=== PATIENT | male | born 1950 | race Caucasian/White ===

== ENCOUNTER → 2016-06-17 | Outpatient (CLI) | payer OTHER ==
[~2016-06-17] VITALS: Ht 177.8 cm; Wt 127.0 kg
[~2016-06-17] MED LIST: ATOR40TA PO; BUPR75TA5 PO; EFFE150C PO; ELIQ5TAB PO; GLIP5TAB8 PO; IRON65TA PO; JANU100T PO; LIDOCAINE 2% INJ 100 MG/5 ML SDV (FOR ANES.) As Ordered ONE; METF1000 PO; METO-207 PO; NS 1,000 ML IV SCH; PROPOFOL 200 MG/20 ML VIAL As Ordered ONE; VITA10002 PO; VITA2000 PO; VITMTA PO
--- NOTE | 2016-06-17 09:09 | ROOR ---
Patient Name: True Walls Procedure Date: 06/17/2016 8:47 AM Date of : 1950 Age: 66 Room: [facility] Gender: Male Note Status: Finalized Procedure: Colonoscopy to Cecum Indications: Colon cancer screening in patient at increased risk: Colorectal cancer in brother, Last colonoscopy: 2006 Providers: Fletcher Michael MD Referring MD: Chitra Avila DO Requesting Provider: Medicines: Monitored Anesthesia Care Complications: No immediate complications. Procedure: Pre-Anesthesia Assessment: - The heart rate, respiratory rate, oxygen saturations, blood pressure, adequacy of pulmonary ventilation, and response to care were monitored throughout the procedure. The Colonoscope was introduced through the anus and advanced to the cecum, identified by appendiceal orifice and ileocecal valve. The colonoscopy was performed without difficulty. The patient tolerated the procedure well. The quality of the bowel preparation was fair. Findings: The perianal and digital rectal examinations were normal. Non-bleeding internal hemorrhoids were found during retroflexion. The hemorrhoids were small and Grade I (internal hemorrhoids that do not prolapse). Scattered small-mouthed diverticula were found in the recto-sigmoid colon, sigmoid colon and descending colon. The exam was otherwise without abnormality on direct and retroflexion views. Impression: - Preparation of the colon was fair. - Non-bleeding internal hemorrhoids. - Diverticulosis in the recto-sigmoid colon, in the sigmoid colon and in the descending colon. - The examination was otherwise normal on direct and retroflexion views. - No specimens collected. - The exam was otherwise normal to the cecum. Recommendation: - Patient has a contact number available for emergencies. The signs and symptoms of potential delayed complications were discussed with the patient. Return to normal activities tomorrow. Written discharge instructions were provided to the patient. - High fiber diet. - Continue present medications. - Repeat colonoscopy in 5 years for screening purposes. - Return to referring physician. - Resume Eliquis (apixaban) at prior dose today. - The findings and recommendations were discussed with the patient's family. Fletcher Michael MD Fletcher Michael MD 06/17/2016 9:09:16 AM This report has been signed electronically. Number of Addenda: 0 Note Initiated On: 06/17/2016 8:47 AM Estimated Blood Loss: Estimated blood loss: none.
[2016-06-17 09:35] VITALS: BP 118/66
== END ==
LOC: M OPP 08:12
PROVIDERS: ATTEND Internal Medicine Gastroenterology
DX: Z12.11 Encounter for screening for malignant neoplasm of colon (principal); Z80.0 Family history of malignant neoplasm of digestive organs; K64.0 First degree hemorrhoids; K57.30 Diverticulosis of large intestine without perforation or abscess without bleeding; D64.9 Anemia, unspecified; I48.91 Unspecified atrial fibrillation; E11.9 Type 2 diabetes mellitus without complications; Z87.891 Personal history of nicotine dependence; Z79.899 Other long term (current) drug therapy
CPT/HCPCS: 99156; 99157; G0105

== ENCOUNTER → 2016-12-07 | Outpatient (REF) | payer OTHER ==
[~2016-12-07] MED LIST changes: -ATOR40TA PO; +ATOR40TA75 PO; -LIDOCAINE 2% INJ 100 MG/5 ML SDV (FOR ANES.) As Ordered ONE; -METF1000 PO; +METF10004 PO; -METO-207 PO; +METO1TAB7 PO; -NS 1,000 ML IV SCH; -PROPOFOL 200 MG/20 ML VIAL As Ordered ONE
== END ==
LOC: M LAB REF 17:22
PROVIDERS: ATTEND Nurse Practitioner Family
DX: R53.83 Other fatigue (principal)

== ENCOUNTER → 2017-01-11 | Outpatient (CLI) | payer OTHER ==
[2017-01-11 12:08] LABS: MEAN CORPUSCULAR HEMOGLOBIN 28.7 pg (27.0-33.0); MEAN CORPUSCULAR VOLUME 84.5 fl (80.0-96.0); WHITE BLOOD COUNT 9.3 K/mm3 (4.0-10.0)
== END ==
LOC: M LAB 11:28
PROVIDERS: ATTEND Thoracic Surgery (Cardiothoracic Vascular Surgery)
DX: D72.829 Elevated white blood cell count, unspecified (principal)

== ENCOUNTER → 2017-11-09 | Outpatient (REF) | payer OTHER ==
[2017-11-10 10:41] LABS: VITAMIN B12 LEVEL 707 PG/ML (247-911)
== END ==
LOC: M LAB REF 17:44
DX: D51.9 Vitamin B12 deficiency anemia, unspecified (principal)
CPT/HCPCS: 82607

== ENCOUNTER → 2017-11-29 | Outpatient (REF) | payer OTHER | LOC: M LAB REF 16:55 | DX: R22.1 Localized swelling, mass and lump, neck (principal) ==

== ENCOUNTER → 2017-12-28 | Outpatient (CLI) | payer MEDICARE, OTHER | LOC: M ONCR 13:12 | DX: C09.9 Malignant neoplasm of tonsil, unspecified (principal) | CPT/HCPCS: G0463 ==

== ENCOUNTER → 2018-01-04 | Outpatient (CLI) | payer MEDICARE, OTHER | LOC: M PLARAD 11:15 | DX: C77.0 Secondary and unspecified malignant neoplasm of lymph nodes of head, face and neck (principal) | CPT/HCPCS: 78815 ==

== ENCOUNTER 2018-01-14 10:07 | Day surgery (SDC) | payer MEDICARE ==
[2018-01-14] MEDS: LR 1,000 ML IV ×2 (07:00)
[2018-01-14 10:27] LABS: HEMATOCRIT 35.5 % (42.0-52.0); HEMOGLOBIN 11.6 g/dl (13.5-17.5); MEAN CORPUSCULAR HEMOGLOBIN 26.5 pg (27.0-33.0); MEAN CORPUSCULAR HGB CONC 32.7 g/dl (32.0-36.5); MEAN CORPUSCULAR VOLUME 81.1 fl (80.0-96.0); PLATELET COUNT, AUTOMATED 280 10^3/uL (150-450); RED BLOOD COUNT 4.38 10^6/uL (4.30-6.10); RED CELL DISTRIBUTION WIDTH 14.2 % (11.5-14.5); WHITE BLOOD COUNT 9.5 10^3/uL (4.0-10.0)
[2018-01-14 10:49] LABS: ANION GAP 6 MEQ/L (8-16); BLOOD UREA NITROGEN 14 MG/DL (7-18); CALCIUM LEVEL 8.7 MG/DL (8.8-10.2); CARBON DIOXIDE LEVEL 28 MEQ/L (21-32); CHLORIDE LEVEL 106 MEQ/L (98-107); CREATININE FOR GFR 0.91 MG/DL (0.70-1.30); GLOMERULAR FILTRATION RATE > 60.0 (>49); GLUCOSE, FASTING 222 MG/DL (70-100); POTASSIUM SERUM 4.5 MEQ/L (3.5-5.1); SODIUM LEVEL 140 MEQ/L (136-145)
[2018-01-14 11:01] LABS: BEDSIDE GLUCOSE 235 MG/DL (80-115)
[2018-01-14] MEDS: HumaLOG INSULIN (NovoLOG) PER UNIT SC ×2 (11:19)
[2018-01-14] MEDS: dexameTHASONE 4 MG/ML 1ML VIAL (J1100) IV ×2 (13:15)
[2018-01-14] MEDS: OXYMETAZOLINE NASAL SPRAY (AFRIN) As Ordered ×2 (13:48)
[2018-01-14] MEDS: LIDOCAINE W/EPINEPHRINE 1% 20ML VIAL As Ordered ×2 (13:50)
[2018-01-14 14:25] LABS: BEDSIDE GLUCOSE 164 MG/DL (80-115)
[2018-01-14] MEDS ORDERED: fentaNYL 250 MCG/5 ML INJECTION (J3010) As Ordered ×2 (14:27)
[2018-01-14] MEDS ORDERED: ROCURONIUM BROMIDE 50 MG/5 ML VIAL As Ordered ×2 (14:28)
[2018-01-14] MEDS ORDERED: dexameTHASONE 4 MG/ML 1ML VIAL (J1100) As Ordered ×2 (14:28)
[2018-01-14] MEDS ORDERED: LIDOCAINE 2% INJ 100 MG/5 ML SDV (FOR ANES.) As Ordered ×2 (14:28)
[2018-01-14] MEDS ORDERED: PROPOFOL 200 MG/20 ML VIAL As Ordered ×2 (14:28)
[2018-01-14] MEDS ORDERED: MIDAZOLAM INJ 2 MG/2 ML VIAL (J2250) As Ordered ×2 (14:28)
[2018-01-14] MEDS ORDERED: ONDANSETRON 4MG/2ML VIAL (J2405) As Ordered ×2 (14:28)
[2018-01-14] MEDS ORDERED: SUGAMMADEX SODIUM 500 MG/5 ML VIAL (BRIDION) As Ordered ×2 (14:29)
[2018-01-14] MEDS ORDERED: PERCOCET 5MG/325MG TAB PO ×2 (14:45)
[2018-01-14] MEDS ORDERED: LR 1,000 ML IV ×4 (14:45)
[2018-01-14] MEDS ORDERED: fentaNYL 100 MCG/2 ML INJECTION (J3010) IV ×2 (14:45)
[2018-01-14] MEDS ORDERED: ONDANSETRON 4MG/2ML VIAL (J2405) IV ×2 (14:45)
[2018-01-14] MEDS ORDERED: METOCLOPRAMIDE INJ 10MG/2ML VIAL (J2765) IV ×2 (14:45)
[2018-01-14] MEDS ORDERED: MEPERIDINE INJ 25 MG/ML VIAL (J2175) IV ×2 (14:45)
== END 2018-01-14 15:37 | disposition home or self-care (01) ==
LOC: M SDC 10:07
DX: C09.9 Malignant neoplasm of tonsil, unspecified (principal); C10.3 Malignant neoplasm of posterior wall of oropharynx; I48.0 Paroxysmal atrial fibrillation; Z79.01 Long term (current) use of anticoagulants; Z87.891 Personal history of nicotine dependence; I25.10 Atherosclerotic heart disease of native coronary artery without angina pectoris; Z95.1 Presence of aortocoronary bypass graft; Z95.2 Presence of prosthetic heart valve; I35.0 Nonrheumatic aortic (valve) stenosis; I71.2 Thoracic aortic aneurysm, without rupture; E11.9 Type 2 diabetes mellitus without complications; G47.33 Obstructive sleep apnea (adult) (pediatric); Z79.899 Other long term (current) drug therapy
CPT/HCPCS: 31536

== ENCOUNTER → 2018-01-14 | Outpatient (REF) | payer MEDICARE | LOC: M LAB REF 15:00 | DX: C34.90 Malignant neoplasm of unspecified part of unspecified bronchus or lung (principal) | CPT/HCPCS: 88300 ==

== ENCOUNTER → 2018-01-18 | Outpatient (REF) | payer MEDICARE ==
[2018-01-18 13:54] LABS: PLATELET COUNT, AUTOMATED 343 10^3/uL (150-450)
[2018-01-18 14:07] LABS: INR 1.06; PROTHROMBIN TIME 13.9 SECONDS (12.1-14.4)
== END ==
LOC: M LAB REF 13:22
DX: Z01.812 Encounter for preprocedural laboratory examination (principal); Z79.01 Long term (current) use of anticoagulants
CPT/HCPCS: 85049

== ENCOUNTER → 2018-01-24 | Outpatient (CLI) | payer MEDICARE ==
[~2018-01-24] MED LIST changes: -ATOR40TA75 PO; -BUPR75TA5 PO; -EFFE150C PO; -ELIQ5TAB PO; -GLIP5TAB8 PO; -IRON65TA PO; -JANU100T PO; +LIDOCAINE 1% MDV 20ML VIAL As Ordered; -METF10004 PO; -METO1TAB7 PO; -VITA10002 PO; -VITA2000 PO; -VITMTA PO
== END ==
LOC: M RADPRO 12:17
DX: C34.90 Malignant neoplasm of unspecified part of unspecified bronchus or lung (principal); R91.8 Other nonspecific abnormal finding of lung field; Z88.8 Allergy status to other drugs, medicaments and biological substances; Z91.048 Other nonmedicinal substance allergy status
CPT/HCPCS: 32405

== ENCOUNTER → 2018-02-08 | Outpatient (CLI) | payer MEDICARE | LOC: M SMT 09:44 | DX: C78.01 Secondary malignant neoplasm of right lung (principal) | CPT/HCPCS: 71046 ==

== ENCOUNTER 2018-02-09 11:27 | Day surgery (SDC) | payer MEDICARE ==
[2018-02-09] MEDS ORDERED: ceFAZolin 2 GM/D5W 50 ML IV BAG (J0690 PER 500MG) As Ordered (12:00)
[2018-02-09 12:24] LABS: BEDSIDE GLUCOSE 220 MG/DL (80-115)
[2018-02-09] MEDS ORDERED: LR 1,000 ML IV (13:00)
[2018-02-09] MEDS ORDERED: LIDOCAINE 2% INJ 100 MG/5 ML SDV (FOR ANES.) As Ordered (13:19)
[2018-02-09] MEDS ORDERED: PROPOFOL 200 MG/20 ML VIAL As Ordered ×2 (13:19→13:59)
[2018-02-09] MEDS ORDERED: fentaNYL 100 MCG/2 ML INJECTION (J3010) As Ordered (13:20)
[2018-02-09] MEDS ORDERED: MIDAZOLAM INJ 2 MG/2 ML VIAL (J2250) As Ordered (13:20)
[2018-02-09] MEDS: MUPIROCIN 2% OINT 22 GM TUBE TOP (13:45)
[2018-02-09 13:56] LABS: BEDSIDE GLUCOSE 215 MG/DL (80-115)
[2018-02-09] MEDS: LIDOCAINE 1% MDV 20ML VIAL As Ordered (14:00)
[2018-02-09] MEDS: HEPARIN SOD (PORCINE) 5000 UNITS/ML VIAL As Ordered (14:00)
[2018-02-09] MEDS: BUPIVACAINE LIPOSOME/PF 1.3% 20 ML VIAL (13.3MG/ML)(EXPAREL) As Ordered (14:10)
== END 2018-02-09 15:56 | disposition home or self-care (01) ==
LOC: M SDC 15:56
DX: C78.01 Secondary malignant neoplasm of right lung (principal); C09.0 Malignant neoplasm of tonsillar fossa; Z45.2 Encounter for adjustment and management of vascular access device; G47.33 Obstructive sleep apnea (adult) (pediatric); E66.01 Morbid (severe) obesity due to excess calories; I48.91 Unspecified atrial fibrillation; Z79.02 Long term (current) use of antithrombotics/antiplatelets; I10 Essential (primary) hypertension; E78.00 Pure hypercholesterolemia, unspecified; E11.9 Type 2 diabetes mellitus without complications; Z95.1 Presence of aortocoronary bypass graft; Z87.891 Personal history of nicotine dependence; Z79.84 Long term (current) use of oral hypoglycemic drugs; I25.119 Atherosclerotic heart disease of native coronary artery with unspecified angina pectoris
CPT/HCPCS: 36561

== ENCOUNTER → 2018-02-21 | Outpatient (CLI) | payer MEDICARE | LOC: M SMT 08:19 | DX: C78.01 Secondary malignant neoplasm of right lung (principal) | CPT/HCPCS: 71046 ==

== ENCOUNTER → 2018-02-22 | Outpatient (REF) | payer MEDICARE ==
[2018-02-22 19:58] LABS: MAGNESIUM LEVEL 1.6 MG/DL (1.8-2.4)
== END ==
LOC: M LAB REF 11:04
DX: C78.01 Secondary malignant neoplasm of right lung (principal); C77.1 Secondary and unspecified malignant neoplasm of intrathoracic lymph nodes
CPT/HCPCS: 83735

== ENCOUNTER → 2018-04-20 | Outpatient (CLI) | payer MEDICARE ==
[~2018-04-20] MED LIST changes: +ASPI1TAB PO; +ATOR40TA75 PO; +BUPR75TA5 PO; +EFFE150C2 PO; +ELIQ5TAB PO; +FERR325T3 PO; +GLIP5TAB8 PO; +IRON65TA PO; +ISOVUE-370 76% 100ML VIAL (Q9967) As Ordered ONE; +JANU100T PO; +LASI40TA PO; -LIDOCAINE 1% MDV 20ML VIAL As Ordered; +MAGN400T5 PO; +METF10004 PO; +METO1TAB7 PO; +METO50TA7 PO; +ONDA8TAB8 PO; +PERCOCET PO; +PROC10TA4 PO; +VITA10002 PO; +VITA2000 PO; +VITA500079 PO; +VITA500T3 PO; +VITMTA PO; +ZOFR8TAB22 PO
--- NOTE | 2018-04-20 11:42 | REP ---
CT NECK WITH CONTRAST: HISTORY: Squamous cell carcinoma. CONTRAST: Isovue 370, 100 mL. COMPARISON: 11/24/2017. There is very minimal thickening of the right lateral wall of the nata- and hypopharynx. This is decreased compared to the previous study. There is no significant mass effect on the nata- or hypopharynx. The nasopharynx, larynx, and subglottic trachea are normal in appearance. An enlarged lymph node mass is present in the right internal jugular chain and posterior triangle at the level of the nata- and hypopharynx. This measures 3.9 cm in transverse by 4.7 cm in AP by 4.5 cm in cephalocaudal dimensions and is slightly increased in size compared to the previous study. An enlarged lymph node mass is present in the right posterior triangle at the level of the hypopharynx. This measures 2.5 cm in transverse by 3.3 cm in AP by 2.7 cm in cephalocaudal dimensions and is increased in size compared to the previous study. An enlarged lymph node of 1.3 cm in width is present in the right posterior triangle at the level of the lower hypopharynx. An enlarged lymph node 1.6 cm in width is present in the right retropharyngeal space at the level of the oropharynx. This is unchanged in size compared to the previous study. An enlarged lymph node 1.9 cm in width is present in the right internal jugular chain at the level of the nata- and hypopharynx. An enlarged lymph node 1.6 cm in width is present in the left posterior triangle at the level of the hypopharynx. An enlarged lymph node 1.4 cm in width is present in the right submandibular area. Small lymph nodes less than 1 cm in size are present in the posterior triangles, left submandibular and submental areas. Atherosclerotic calcification is present at the carotid bifurcations. Degenerative change is present in the cervical spine. The lung apices are clear. Minimal mucosal thickening is present in the right ethmoid and maxillary sinuses. IMPRESSION: 1. There is minimal thickening of the right lateral wall of the nata- and hypopharynx that is decreased in size compared to the previous study. 2. There is bilateral internal jugular chain, posterior triangle, and right submandibular lymphadenopathy that has progressed compared to the previous study. Electronically Signed by Maged Cortes MD 04/20/2018 11:48 A
--- NOTE | 2018-04-20 19:47 | REP ---
Clinical: History of stage IV squamous cell carcinoma. Technique: Axial contrast enhanced images from the thoracic inlet to the upper abdomen with coronal and sagittal re-formations using 100 ml Isovue 370 intravenous contrast material. Comparison: 11/10/2016. Findings: There is a 1.5 cm multinodular lesion in the posterior basilar right middle lobe (images 58-62) which represents a new finding. There is a 1.4 cm nodular density with spiculated margins in the anterior right upper lobe (images 20-23) along with few smaller scattered bilateral non solid densities. Conglomerate subcarinal adenopathy measures 3.8 cm maximal diameter along with mediastinal and right hilar lymph nodes measuring up to approximately 2 cm diameter. These findings are most consistent with metastatic disease. Chronic interstitial changes with few scattered small bullae primarily involving the upper lung zones noted. No effusion. No pneumothorax. Tracheobronchial tree is patent. Mediastinum demonstrates stable atherosclerotic changes to the thoracic aorta and coronary arteries. Upper abdomen demonstrates prior gastric bypass surgery and small hiatal hernia as well as fatty infiltration to the visualized liver. Bilateral adrenal glands are within normal limits. Impression: New soft tissue nodular densities involving the right lung with smaller scattered subtle non solid densities noted bilaterally and associated adenopathy most consistent with increased metastatic disease. Electronically Signed by Ck Holland MD 04/20/2018 07:40 P
== END ==
LOC: M RAD 09:43
PROVIDERS: ATTEND Nurse Practitioner Family
DX: C09.9 Malignant neoplasm of tonsil, unspecified (principal)
CPT/HCPCS: 70491; 71260; Q9967

== ENCOUNTER → 2018-05-16 | Outpatient (CLI) | payer MEDICARE ==
[~2018-05-16] MED LIST changes: -LASI40TA PO; +LASI40TA9 PO
--- NOTE | 2018-05-16 12:47 | REP ---
CT NECK WITH CONTRAST: HISTORY: Tonsillar carcinoma. CONTRAST: Isovue 370, 75 mL. There is minimal thickening of the right lateral wall of the nata- and hypopharynx. This is unchanged compared to the previous study. There is no significant mass effect on the nata- or hypopharynx. The nasopharynx, larynx and subglottic trachea are normal in appearance. The salivary and thyroid gland normal in size and density. Enlarged lymph node 0.5 cm in width is present in the right retropharyngeal space at the level of the tonsils. This is unchanged in size compared to the previous study. An enlarged lymph node mass is present in the right internal jugular chain and posterior triangle. This measures 4.2 cm in transverse x 5.4 in AP x 6.3 cm in cephalocaudal dimensions and is increased in size compared to the previous study. An enlarged lymph node 1.2 cm in width is present in the right posterior triangle, posterior to the large right internal jugular chain posterior triangle, lymph node mass at the level of the hypopharynx. This is increased in size compared to the previous study. Enlarged lymph nodes 1.1 and 1.4 cm in width are present in the right posterior triangle at the level of the thyroid cartilage. These are increased in size compared to the previous study. An enlarged lymph node 1.3 cm in width is present in the right internal jugular chain at the level of the oropharynx. An enlarged lymph node 1.9 cm in width is present in the left internal jugular chain at the level of the hypopharynx. This is unchanged in size compared to the previous study. An enlarged lymph node 1.8 cm in width is present in an enlarged lymph node 1.8 cm in width is present in the left posterior triangle at the level of the hypopharynx. This is increased in size compared to the previous study. An enlarged lymph node 1.3 cm in width is present in the left posterior triangle at the level of the oropharynx. This is unchanged in size compared to the previous study. An enlarged lymph node 1.5 cm in width is present in the right submandibular area. This is increased in size compared to the previous study. Atherosclerotic calcification is present at the carotid bifurcations. Degenerative change is present in the cervical spine. Mucosal thickening is present in the right maxillary sinus. IMPRESSION: 1. There is minimal thickening of the right lateral wall of the nata- and hypopharynx, unchanged compared to the previous study. There is no significant mass effect on the nata- or hypopharynx. 2. There is bilateral internal jugular chain, posterior triangle, and right submandibular lymphadenopathy that has progressed compared to the previous study. Electronically Signed by Maged Cortes MD 05/16/2018 12:57 P
== END ==
LOC: M RAD 10:58
PROVIDERS: ATTEND Internal Medicine Medical Oncology
DX: C09.9 Malignant neoplasm of tonsil, unspecified (principal); C77.1 Secondary and unspecified malignant neoplasm of intrathoracic lymph nodes; C78.01 Secondary malignant neoplasm of right lung
CPT/HCPCS: 70491; Q9967

== ENCOUNTER → 2018-08-23 | Outpatient (CLI) | payer MEDICARE ==
[~2018-08-23] MED LIST changes: -ASPI1TAB PO; +ASPI81TA26 PO; +MAGN400T2 PO
--- NOTE | 2018-08-23 14:33 | REP ---
CT NECK WITH CONTRAST: HISTORY: Metastatic squamous cell carcinoma. CONTRAST: Isovue 370, 100 mL. COMPARISON: 05/16/2018 There is minimal thickening of the right lateral wall of the nata- and hypopharynx. This is unchanged compared to the previous study. There is no significant mass effect on the nata- or hypopharynx. The nasopharynx, larynx, and subglottic trachea are normal in appearance. The salivary and thyroid glands are normal in size and density. An enlarged lymph node mass is present in the right posterior triangle at the level of the nata- and hypopharynx. This measures 2.5 cm in transverse x 3.4 cm in AP x 5.8 cm in cephalocaudal dimensions and is decreased in size compared to the previous study. An enlarged lymph node 1.1 cm in width is present in the right internal jugular chain at the level of the oropharynx. This is decreased in size compared to the previous study. There has been resolution of the previously noted left internal jugular chain, left posterior triangle, and right submandibular adenopathy. Small lymph nodes less than 1 cm in size are present in the left internal jugular chain, left posterior triangle, and submandibular areas. Atherosclerotic calcification is present at the carotid bifurcations. Degenerative change is present in the cervical spine. Mucosal thickening is present in the right ethmoid and maxillary sinuses. IMPRESSION: 1. There is minimal thickening of the right lateral wall of the nata- and hypopharynx with no significant mass effect on the nata- or hypopharynx. This is unchanged compared to the previous study. 2. There has been a decrease in size of the right internal jugular chain and right posterior triangle lymph node masses. There has been resolution of the previously noted left internal jugular chain, left posterior triangle, and right submandibular lymphadenopathy. Electronically Signed by Maged Cortes MD 08/23/2018 02:35 P
--- NOTE | 2018-08-23 15:21 | REP ---
CT chest with IV contrast: History: Metastatic squamous cell carcinoma of the head and neck. Post chemotherapy. Comparison chest CT study April 20, 2018. CT contrast dose: 100 mL of intravenous Isovue [address] findings: There has been fairly dramatic improvement. The previously noted subcarinal lymph node measures 9 x 16 mm today. Previously by my measurement these dimensions were 19 x 39 mm. A right hilar lymph node is much smaller measuring 14 mm today, previously 21 mm in greatest dimension. There is a 12 mm precarinal lymph node which is similar to the prior study. No new mediastinal adenopathy is seen. All of the previously noted metastatic right lung nodules have dramatically decreased in size leaving only a streak-like trace. No new nodule is appreciated. There are stable subcentimeter nodules in the left upper lobe and right upper lobe. No pleural or pericardial effusion is seen. A small hiatal hernia is noted. The patient is status post gastric bypass. There is fatty infiltration of the liver. No liver mass lesion is apparent. No adrenal lesion is observed. No bony destructive lesion is seen. Impression: Significant regression of the patient's intrathoracic disease since the most recent prior study April 20, 2018. Electronically Signed by Jaron Mandel MD 08/23/2018 08:44 P
== END ==
LOC: M RAD 12:45
PROVIDERS: ATTEND Advanced Practice Midwife
DX: C09.9 Malignant neoplasm of tonsil, unspecified (principal); Z92.21 Personal history of antineoplastic chemotherapy
CPT/HCPCS: 70491; 71260; Q9967

== ENCOUNTER → 2018-12-21 | Outpatient (REF) | payer MEDICARE ==
[~2018-12-21] MED LIST changes: +CYAN100049 PO; +CYAN500T8 PO; -ISOVUE-370 76% 100ML VIAL (Q9967) As Ordered ONE; +OXYC1TAB PO; -VITA10002 PO; -VITA500T3 PO
[2018-12-21 20:22] LABS: PERCENT SATURATION 19.9 % (19.7-50.0)
== END ==
LOC: M LAB REF 16:58
PROVIDERS: ATTEND Internal Medicine
DX: D64.9 Anemia, unspecified (principal)

== ENCOUNTER 2019-01-24 15:36 | Emergency (ER) | payer MEDICARE ==
[2019-01-24] MEDS ORDERED: KEYT1INJ IV (15:55)
[2019-01-24] MEDS ORDERED: METOPROLOL TART 50 MG TAB PO ONE (16:45)
[2019-01-24] MEDS ORDERED: APIXABAN 5 MG TAB (ELIQUIS) PO ONE (16:45)
[2019-01-24] MEDS: METOPROLOL 5 MG/5 ML VIAL IV SCH ×3 (16:52→17:18)
[2019-01-24 17:18] VITALS: BP 138/83
--- NOTE | 2019-01-24 17:53 | ECGEPIP ---
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
[2019-01-24] MEDS ORDERED: ELIQ5TAB PO (18:07)
[2019-01-24] MEDS ORDERED: METO50TA7 PO (18:07)
[2019-01-24 18:26] VITALS: BP 114/57
--- NOTE | 2019-01-24 23:30 | ECGEPIP ---
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
== END 2019-01-24 18:39 | disposition home or self-care (01) ==
LOC: M ED 15:36
DX: I48.0 Paroxysmal atrial fibrillation (principal); C09.9 Malignant neoplasm of tonsil, unspecified; I25.10 Atherosclerotic heart disease of native coronary artery without angina pectoris; Z95.1 Presence of aortocoronary bypass graft; Z91.048 Other nonmedicinal substance allergy status; Z88.8 Allergy status to other drugs, medicaments and biological substances; Z95.2 Presence of prosthetic heart valve; Z79.899 Other long term (current) drug therapy; Z79.84 Long term (current) use of oral hypoglycemic drugs; C78.01 Secondary malignant neoplasm of right lung; C77.1 Secondary and unspecified malignant neoplasm of intrathoracic lymph nodes; D61.810 Antineoplastic chemotherapy induced pancytopenia
CPT/HCPCS: 36591; 80053; 84439; 84443; 85027; 93005; 96374; 99284; G0463; J1642

== ENCOUNTER → 2019-02-27 | Outpatient (CLI) | payer MEDICARE ==
[~2019-02-27] MED LIST changes: +GASTROGRAFIN SOLUTION 30ML (Q9963) As Ordered ONE; +ISOVUE-370 76% 100ML VIAL (Q9967) As Ordered ONE; +KEYT1INJ IV
--- NOTE | 2019-02-27 17:09 | REP ---
Clinical: Stage IV head and neck cancer. Technique: Axial contrast enhanced images from the thoracic inlet to the upper abdomen with coronal and sagittal re-formations using 100 ml Isovue 370 intravenous contrast material. Comparison: 11/22/2018, 04/20/2018 Findings: Chronic interstitial changes and scattered scarring are again noted. 4 mm chronic nodular density in the anterior right upper lobe (image 51) remains unchanged compared to 2018. Previously identified pulmonary metastatic nodules have resolved. No acute metastatic foci, consolidation or pleural effusion. Tracheobronchial tree is patent. Mediastinal lymph nodes currently measure up to 12 mm in the pretracheal space and 24 mm in the subcarinal space have decreased from prior examination. Atherosclerotic changes to the thoracic aorta and coronary arteries noted. No aortic aneurysm or dissection. No cardiomegaly. No pericardial effusion. Surrounding musculoskeletal structures intact without focal osseous abnormality. Impression: Chronic interstitial changes and minimal scattered scarring. Previously identified pulmonary metastatic foci have resolved. No new acute metastasis appreciated. Decreased mediastinal and subcarinal adenopathy. Electronically Signed by Ck Holland MD 02/27/2019 05:01 P
--- NOTE | 2019-02-27 17:19 | REP ---
Clinical: Stage IV head and neck carcinoma. Technique: Axial contrast enhanced images from the lung bases to the pubic symphysis using oral (per protocol) and 100 ml Isovue 370 intravenous contrast material with coronal and sagittal re-formations. Comparison: 11/22/2018. Findings: Evidence of prior gastric bypass surgery with small hiatal hernia noted. Fatty infiltration to the liver without focal hepatic lesion identified. Subcentimeter splenic hypodensities at the capsule remain stable and likely represent small chronic cysts. Pancreas, gallbladder, bilateral adrenal glands and kidneys are essentially normal. 3.5 cm simple exophytic left renal cyst again noted. The enteric system is without obstruction or acute inflammatory process. Pelvis demonstrates normal bladder and age appropriate prostate/seminal vesicles. No ascites. No free air. No intraperitoneal or retroperitoneal adenopathy. Atherosclerotic changes of the aorta and vasculature without aneurysm or dissection. Musculoskeletal structures demonstrate age-related changes without focal abnormality. Impression: 1. Chronic stable benign splenic and left renal cysts. 2. Hepatic steatosis. 3. No obvious acute metastatic disease. No mass. No ascites. No adenopathy. No focal inflammatory stranding. 4. Hiatal hernia. Electronically Signed by Ck Holland MD 02/27/2019 05:10 P
--- NOTE | 2019-02-28 13:27 | REP ---
CT neck: 02/27/2019. Indication: Head and neck carcinoma. Comparison: 11/22/2018. Technique: Axial images of the neck soft tissues were obtained following the administration of 100 ml IV Isovue 370 via IV route with coronal and sagittal reconstructions provided. Findings: Postoperative/post therapeutic sequelae are present without significant residual/recurrent neoplasm or cervical lymphadenopathy. The airway is patent. No acute ocular, intraorbital or intracranial abnormalities are detected. Para septal and minimal centrilobular emphysema sequelae are present within the visualized lungs. Bilateral carotid atherosclerotic sequelae are present without high-grade stenosis detected on this technique. Impression: No significant new residual/recurrent neoplasm compared to 11/22/2018. Electronically Signed by Chandana Frazier DO 02/28/2019 03:02 P
== END ==
LOC: M RAD 14:15
PROVIDERS: ATTEND Internal Medicine Medical Oncology
DX: C09.9 Malignant neoplasm of tonsil, unspecified (principal)
CPT/HCPCS: 70491; 71260; 74177; Q9963; Q9967

== ENCOUNTER → 2019-03-21 | Outpatient (CLI) | payer MEDICARE ==
[~2019-03-21] MED LIST changes: -GASTROGRAFIN SOLUTION 30ML (Q9963) As Ordered ONE; -ISOVUE-370 76% 100ML VIAL (Q9967) As Ordered ONE
--- NOTE | 2019-03-21 12:31 | REP ---
RIGHT ANKLE: FIVE VIEWS. HISTORY: Right ankle injury. FINDINGS: Five views of the right ankle demonstrate an obliquely oriented nondisplaced fracture through the distal fibula. No tibial fracture is seen. There is mild tibiotalar osteoarthritic spurring. Ankle mortise is intact. There is diffuse soft tissue swelling. IMPRESSION: Nondisplaced oblique fracture distal fibula. Electronically Signed by Jaron Mandel MD 03/21/2019 03:35 P
== END ==
LOC: M LRY 11:27
PROVIDERS: ATTEND Nurse Practitioner Family
DX: S82.434A Nondisplaced oblique fracture of shaft of right fibula, initial encounter for closed fracture (principal); W00.1XXA Fall from stairs and steps due to ice and snow, initial encounter; Y92.9 Unspecified place or not applicable
CPT/HCPCS: 29515; 73610; G0463

== ENCOUNTER → 2019-06-19 | Outpatient (CLI) | payer MEDICARE ==
[~2019-06-19] MED LIST changes: +GASTROGRAFIN SOLUTION 30ML (Q9963) As Ordered ONE; +ISOVUE-370 76% 100ML VIAL (Q9967) As Ordered ONE
--- NOTE | 2019-06-19 13:53 | REP ---
Clinical: Head and neck carcinoma. Restaging. Technique: Axial contrast enhanced images from the thoracic inlet to the upper abdomen with coronal and sagittal re-formations oozing 100 ml Isovue 370 intravenous contrast material. Comparison: 02/27/2019. Findings: Lung avalos are well-aerated. Age-related chronic interstitial changes and small scattered subpleural blebs are identified. Small 3 mm densities remain stable and consistent with scarring. No acute nodule or mass. No consolidation. No effusion. No pneumothorax. No significant axillary, hilar, or mediastinal adenopathy. Evidence of prior sternotomy and cardiac stenting. No cardiomegaly or pericardial effusion. Thoracic aorta without aneurysm or dissection. Stable small hiatal hernia with evidence of prior gastric bypass surgery. Surrounding musculoskeletal structures without acute abnormality. Impression: 1. Chronic stable changes. 2. No acute mediastinal or pleuroparenchymal process. No evidence for metastatic disease. Electronically Signed by Ck Holland MD 06/19/2019 01:45 P
--- NOTE | 2019-06-19 13:57 | REP ---
Clinical: Head neck carcinoma. Restaging. Technique: Axial contrast enhanced images from the lung bases to the pubic symphysis with coronal and sagittal re-formations using oral (per protocol) and 100 ml Isovue 370 intravenous contrast material. Delayed images of the abdomen obtained. Comparison: 02/27/2019. Findings: Diffuse fatty infiltration to the liver noted without focal hepatic lesion. Small chronic rim calcified splenic cyst identified. The pancreas, gallbladder, bilateral adrenal glands and kidneys are normal / stable. 3.2 cm lower pole left renal cyst again noted. Hiatal hernia identified along with evidence of prior gastric bypass surgery. No bowel obstruction or acute inflammatory process. Sigmoid diverticula noted without acute diverticulitis. Pelvis demonstrates normal collapsed bladder and age appropriate prostate/seminal vesicles. No ascites. No adenopathy. No obvious mass lesion. No inflammatory stranding. Atherosclerotic changes to the aorta and vasculature noted without aneurysm or dissection. Musculoskeletal structures demonstrate degenerative changes without acute osseous abnormality. Impression: 1. No evidence for metastatic disease. No ascites. No focal inflammatory stranding. No adenopathy. 2. Hepatic steatosis. 3. Chronic stable splenic and left renal cyst. 4. Hiatal hernia. Prior gastric bypass surgery. Electronically Signed by Ck Holland MD 06/19/2019 01:49 P
--- NOTE | 2019-06-19 14:50 | REPVR ---
PROCEDURE INFORMATION: Exam: CT Neck With Contrast Exam date and time: 06/19/2019 1:14 PM Age: 69 years old Clinical indication: Condition or disease; Cancer; Other: Head neck; Additional info: Restaging head/neck CA TECHNIQUE: Imaging protocol: Computed tomography images of the neck with intravenous contrast. Radiation optimization: All CT scans at this facility use at least one of these dose optimization techniques: automated exposure control; mA and/or kV adjustment per patient size (includes targeted exams where dose is matched to clinical indication); or iterative reconstruction. Contrast material: ISOVUE 370; Contrast volume: 100 ml; Contrast route: IV; COMPARISON: CT Neck with contrast 02/27/2019 4:[address] Chest with contrast 02/27/2019 4:20:07 PM FINDINGS: Nasopharynx: Unremarkable. Oropharynx: Unremarkable. No significant tonsillar enlargement. Hypopharynx: Unremarkable Larynx: Unremarkable. Normal epiglottis. Retropharyngeal space: Unremarkable. Submandibular/Parotid glands: Normal. Glands are normal in size. Thyroid: Normal. No enlarged or calcified nodules. Lymph nodes: No pathologic lymphadenopathy is seen. Trachea: Visualized trachea is unremarkable. Lungs: Paraseptal and centrilobular emphysema is noted within the upper lobes. Vasculature: The superior/mid right internal jugular vein is probably ligated or compressed Bones/joints: Moderate degenerative changes of the cervical spine are present. Soft tissues: An irregular area of soft tissue is again noted in the right neck, inseparable from the right sternocleidomastoid muscle and posterior to the right parotid gland at the level of the right mandibular angle. This is difficult to accurately measure given its ill-defined appearance, but appears unchanged from the previous exam. This may represent an area of postoperative/post treatment scarring. Residual or recurrent neoplasm is difficult to exclude. IMPRESSION: Stable appearance of the neck as discussed above. Electronically signed by: Anders Murray On 06/19/2019 14:49:58 PM
== END ==
LOC: M RAD 11:29
PROVIDERS: ATTEND Internal Medicine Medical Oncology
DX: C09.9 Malignant neoplasm of tonsil, unspecified (principal)
CPT/HCPCS: 70491; 71260; 74177; Q9963; Q9967

== ENCOUNTER → 2020-02-26 | Outpatient (CLI) | payer MEDICARE ==
[~2020-02-26] MED LIST changes: +ASPI81CH33 PO; +ATOR40TA75; +DOCU100C16 PO; -GASTROGRAFIN SOLUTION 30ML (Q9963) As Ordered ONE; -ISOVUE-370 76% 100ML VIAL (Q9967) As Ordered ONE; +LANTINJ4 SC; +OZEM2INJ SC; +ZOFR8TAB24 PO
[2020-02-26 13:25] LABS: HEMATOCRIT 35.7 % (42.0-52.0); HEMOGLOBIN 11.7 g/dl (13.5-17.5); MEAN CORPUSCULAR HGB CONC 32.8 g/dl (32.0-36.5); MEAN CORPUSCULAR VOLUME 82.3 fl (80.0-96.0); PLATELET COUNT, AUTOMATED 289 10^3/uL (150-450); RED BLOOD COUNT 4.34 10^6/uL (4.30-6.10); WHITE BLOOD COUNT 9.6 10^3/uL (4.0-10.0)
[2020-02-26 13:34] LABS: INR 0.92; PARTIAL THROMBOPLASTIN TIME 27.3 SECONDS (24.2-38.5); PROTHROMBIN TIME 12.6 SECONDS (12.5-14.3)
[2020-02-26 13:55] LABS: BLOOD UREA NITROGEN 20 MG/DL (7-18); CARBON DIOXIDE LEVEL 27 MEQ/L (21-32); CHLORIDE LEVEL 107 MEQ/L (98-107); CREATININE FOR GFR 0.93 MG/DL (0.70-1.30); GLOMERULAR FILTRATION RATE > 60.0 (>49); GLUCOSE, FASTING 152 MG/DL (70-100); POTASSIUM SERUM 4.5 MEQ/L (3.5-5.1); SODIUM LEVEL 141 MEQ/L (136-145)
--- NOTE | 2020-02-28 05:07 | REP ---
INDICATION: LEFT RENAL MASS, PREOP TESTING COMPARISON: 02/21/2018 TECHNIQUE: PA and lateral. FINDINGS: Evidence for prior sternotomy and [id number] placement. The mediastinum and cardiac silhouette are normal. The lung avalos are clear and without acute consolidation, effusion, or pneumothorax. The skeletal structures are intact and normal. IMPRESSION: No acute cardiopulmonary process. <Electronically signed by Ck Holland > 02/28/20 [id number]
== END ==
LOC: M LAB 12:36
PROVIDERS: ATTEND Urology
DX: Z01.818 Encounter for other preprocedural examination (principal); Z28.89 Immunization not carried out for other reason

== ENCOUNTER → 2020-03-01 | Outpatient (CLI) | payer MEDICARE | LOC: M LABSMTC 09:42 | PROVIDERS: ATTEND Anesthesiology | DX: Z01.812 Encounter for preprocedural laboratory examination (principal); Z20.828 Contact with and (suspected) exposure to other viral communicable diseases | CPT/HCPCS: C9803; U0003 ==

== ENCOUNTER 2020-03-06 06:13 | Inpatient (IN) | payer MEDICARE ==
[~2020-03-06] VITALS: Ht 172.7 cm; Wt 124.0 kg
[2020-03-06] VITALS (8 sets, daily range): BP systolic 124–131; BP diastolic 60–65
[~2020-03-06 06:13] MED LIST changes: -ATOR40TA75; -DOCU100C16 PO; +LR 1,000 ML IV SCH; +ceFAZolin SOD 2 GM in IV 1 EA IV ONE
[2020-03-06] MEDS ORDERED: ATOR40TA75 (06:47)
[2020-03-06] MEDS ORDERED: MIDAZOLAM INJ 2MG/2ML VIAL (J2250 PER 1MG) As Ordered ONE (07:13)
[2020-03-06] MEDS ORDERED: fentaNYL 250 MCG/5 ML INJECTION (J3010) As Ordered ONE (07:13)
[2020-03-06] MEDS ORDERED: dexameTHASONE 4 MG/ML 1ML VIAL (J1100 PER 1MG) As Ordered ONE (07:13)
[2020-03-06] MEDS ORDERED: ONDANSETRON 4MG/2ML VIAL As Ordered ONE (07:13)
[2020-03-06] MEDS ORDERED: ROCURONIUM BROMIDE 50 MG/5 ML VIAL As Ordered ONE ×4 (07:14→10:48)
[2020-03-06] MEDS ORDERED: LIDOCAINE 2% 100MG/5ML SDV (FOR ANES.) As Ordered ONE (07:14)
[2020-03-06] MEDS ORDERED: propofoL 200 MG/20 ML VIAL As Ordered ONE (07:14)
[2020-03-06] MEDS ORDERED: MANNITOL 25% 12.5 GM/50 ML VIAL (J2150) As Ordered ONE ×2 (07:17→08:17)
[2020-03-06] MEDS ORDERED: BUPIVACAINE HCL 0.25% 30ML VIAL As Ordered ONE (07:18)
[2020-03-06] MEDS ORDERED: LIDOCAINE 1% SDV 30ML VIAL As Ordered ONE (07:18)
[2020-03-06] MEDS ORDERED: NS 1,000 ML IV SCH (07:37)
[2020-03-06] MEDS ORDERED: PERCOCET 5MG/325MG TAB PO PRN (07:45)
[2020-03-06] MEDS ORDERED: MORPHINE 2 MG/ML 1ML VIAL (J2270) IV PRN ×2 (07:45→13:00)
[2020-03-06] MEDS ORDERED: ONDANSETRON 4MG/2ML VIAL IV PRN ×2 (07:45→13:00)
[2020-03-06] MEDS ORDERED: ePHEDrine SULFATE 25 MG/5 ML(5MG/ML) SYRINGE As Ordered ONE (07:55)
[2020-03-06] MEDS ORDERED: PHENYLephrine HCL 500 MCG/5 ML (100MCG/ML) SYRINGE (J2370) As Ordered ONE ×2 (07:55→10:50)
[2020-03-06] MEDS ORDERED: METO50TA7 PO (08:00)
[2020-03-06] MEDS ORDERED: ACETAMINOPHEN 1000MG 100ML IV BTL (OFIRMEV) (J0131 PER 10MG) As Ordered ONE (08:27)
[2020-03-06] MEDS ORDERED: SUGAMMADEX SODIUM 500 MG/5 ML VIAL (BRIDION) As Ordered ONE (10:50)
--- NOTE | 2020-03-06 12:16 | ROOPDOC ---
[facility] Report Of Operation Report of Operation DATE OF PROCEDURE: 03/06/20 PREPROCEDURE DIAGNOSIS: Left renal mass. POSTPROCEDURE DIAGNOSIS: Left renal mass. PROCEDURE: Left robotic-assisted laparoscopic partial nephrectomy with intraoperative ultrasound for tumor mapping. SURGEON: Rip Kenyon MD WINDSMITH: Cara Yadav NP ANESTHESIA: General OPERATIVE INDICATIONS: This is a 69 year old male recently found to have an approximately 1.6cm enhancing mass on his left kidney a few months ago. He was brought to the operating room today for treatment. DESCRIPTION OF PROCEDURE: The patient was brought to the operating room where general anesthesia was induced. Prophylactic antibiotics were infused. A Guillory c atheter was inserted into the bladder under sterile conditions and the balloon was filled with sterile water. He was then placed in the right lateral decubitus position. All pressure points were appropriately padded and an axillary roll was placed. We then secured the patient to the table with tape. His abdomen was then prepped and draped in the usual sterile fashion. Next, an 8mm incision was made in line with the 11th rib along the lateral border of the rectus. Pneumoperitoneum was achieved with a Veress needle. Next, an 8mm port was placed for the camera. At this point, the left robotic port was placed off the costal margin. Two right hand robotic ports were then placed with one between the anterior superior iliac spine and the hip and the other one just caudal to the camera port. Last the 12 mm visitor service assistant port was placed inferior and medial to the camera port. The robot was then docked. The spleen was then dissected off of Gerota's fascia. Next the left colon was dissected off of Gerota's fascia. At this point the left gonadal vein was identified and it was traced cephalad to its insertion into the left renal vein. This was carefully dissected and just inferior to the renal vein, the left renal artery was identified. This was also carefully dissected. Next I had our turning sander operator administer 12.5g of mannitol. Gerota's fascia was then opened and I defatted the kidney. On the superior and lateral aspect of the kidney the tumor was seen. Ultrasound was then utilized to mouna the boundaries of the mass. Next 2 bulldog clamps were placed on the renal artery and we began resecting the mass. The mass was resected completely and it appeared that we had a good margin. Once the mass was removed, the renorrhaphy was performed first by ligating all vessels in the base of resection with a #2-0 vicryl suture using figure of eight stitches. The capsule of the kidney was then reapproximated using #0-vicryl suture with Weck clips to cinch down the suture. Once this was done the clamps were removed and hemostasis was excellent. The warm ischemia time was 28 minutes. Next Gabriela was applied to the resection bed and the tumor was placed in an endocatch bag. A Jose Banegas drain was positioned just lateral to the kidney. The robot was undocked after confirming hemostasis within the abdomen. The specimen was then extracted from the 12mm port site. A Ozzie- Juan Manuel fascial closure device was then used to place #0-vicryl free ties through the fascia of the 12mm port site. These ties were then tied down. The abdomen was observed again and there was no bleeding from the left kidney or the hilum. We then removed all the ports under direct vision and there was no bleeding from any of the port sites. At this point, all the incisions were thoroughly irrigated. We then closed the skin of each site using a running #4-0 subcuticular Monocryl stitch. The Jose Banegas drain was secured to the skin using #3-0 Ethilon suture. Local anesthetic was then applied to each incision and Dermabond was then applied and this marked the conclusion of the procedure. The patient was then taken out of the left lateral decubitus position, awakened from anesthesia and transported to the recovery room in stable condition. ESTIMATED BLOOD LOSS: 75 mL INTRAOPERATIVE COMPLICATIONS: None SPECIMENS: Left renal neoplasm WARM ISCHEMIA TIME: 28 minutes NORMAL LEFT RENAL PARENCHYMA SPARED: 95% PLAN: The patient will be admitted to the hospital postoperatively and he will be discharged home once his renal function is stable and he is tolerating a regular diet. RIP KENYON MD Mar 06, 2020 12:16
[2020-03-06] MEDS ORDERED: HumaLOG INSULIN (NovoLOG) PER UNIT As Ordered ONE (12:35)
[2020-03-06] MEDS ORDERED: fentaNYL 100 MCG/2 ML INJECTION (J3010) IV PRN (13:00)
[2020-03-06] MEDS ORDERED: oxyCODONE 5MG TAB PO PRN (13:00)
[2020-03-06] MEDS ORDERED: LR 1,000 ML IV SCH (13:00)
[2020-03-06] MEDS ORDERED: HumaLOG INSULIN (NovoLOG) PER UNIT SC ONE (13:15)
[2020-03-06 13:43] LABS: BLOOD UREA NITROGEN 19 MG/DL (7-18); CALCIUM LEVEL 8.7 MG/DL (8.8-10.2); CARBON DIOXIDE LEVEL 27 MEQ/L (21-32); CHLORIDE LEVEL 104 MEQ/L (98-107); CREATININE FOR GFR 1.08 MG/DL (0.70-1.30); GLOMERULAR FILTRATION RATE > 60.0 (>49); GLUCOSE, FASTING 268 MG/DL (70-100); POTASSIUM SERUM 5.1 MEQ/L (3.5-5.1); SODIUM LEVEL 136 MEQ/L (136-145)
[2020-03-06 14:14] LABS: HEMATOCRIT 35.6 % (42.0-52.0); HEMOGLOBIN 11.5 g/dl (13.5-17.5); MEAN CORPUSCULAR HGB CONC 32.3 g/dl (32.0-36.5); MEAN CORPUSCULAR VOLUME 83.6 fl (80.0-96.0); PLATELET COUNT, AUTOMATED 266 10^3/uL (150-450); RED BLOOD COUNT 4.26 10^6/uL (4.30-6.10); WHITE BLOOD COUNT 12.8 10^3/uL (4.0-10.0)
[2020-03-06] MEDS: ceFAZolin SOD 1 GM in D5W MINI-BAG PLUS 50 ML IV SCH (15:08)
[2020-03-06] MEDS: DOCUSATE SODIUM 100 MG CAP PO SCH ×2 (15:08→21:01)
[2020-03-06] MEDS ORDERED: GLUCAGON INJ 1MG VIAL SC PRN (16:45)
[2020-03-06] MEDS ORDERED: DEXTROSE 50% 50 ML SYRINGE IV PRN (16:45)
[2020-03-06] MEDS ORDERED: GLUCOSE 4GM CHEW TABLET PO PRN (16:45)
[2020-03-06] MEDS: HumaLOG INSULIN (NovoLOG) PER UNIT SC SCH ×2 (18:17→21:00)
[2020-03-06] MEDS: buPROPion 75 MG TAB PO SCH (21:03)
[2020-03-06] MEDS: METOPROLOL TART 50 MG TAB PO SCH (21:03)
[2020-03-06] MEDS: ATORVASTATIN 20 MG TAB PO SCH (21:04)
[2020-03-06] MEDS: ACETAMINOPHEN TAB 650MG DOSE (2X325MG) PO PRN (22:31)
[2020-03-07] MEDS: ceFAZolin SOD 1 GM in D5W MINI-BAG PLUS 50 ML IV SCH (01:00)
[2020-03-07] MEDS: PERCOCET 5MG/325MG TAB PO PRN ×2 (01:09→07:57)
[2020-03-07 06:00] VITALS: BP 129/66
[2020-03-07 06:45] LABS: HEMATOCRIT 33.7 % (42.0-52.0); HEMOGLOBIN 10.8 g/dl (13.5-17.5); MEAN CORPUSCULAR HEMOGLOBIN 27.1 pg (27.0-33.0); MEAN CORPUSCULAR VOLUME 84.5 fl (80.0-96.0); PLATELET COUNT, AUTOMATED 242 10^3/uL (150-450); RED BLOOD COUNT 3.99 10^6/uL (4.30-6.10); WHITE BLOOD COUNT 14.7 10^3/uL (4.0-10.0)
[2020-03-07 07:06] LABS: BLOOD UREA NITROGEN 15 MG/DL (7-18); CALCIUM LEVEL 8.5 MG/DL (8.8-10.2); CARBON DIOXIDE LEVEL 29 MEQ/L (21-32); CHLORIDE LEVEL 103 MEQ/L (98-107); CREATININE FOR GFR 1.14 MG/DL (0.70-1.30); GLOMERULAR FILTRATION RATE > 60.0 (>49); GLUCOSE, FASTING 209 MG/DL (70-100); POTASSIUM SERUM 4.7 MEQ/L (3.5-5.1); SODIUM LEVEL 136 MEQ/L (136-145)
--- NOTE | 2020-03-07 07:37 | IPNPDOC ---
Subjective Review oF Systems Chief Complaint The patient is a 69-year-old male admitted with a reason for visit of Renal Mass. Events since Last Encounter No acute events o/n. Good pain control. Got up to the side of the bed yest erday and did ok w/ that. Tolerating soft diet. No n/v. No f/c/ns. Objective Physical Examination General Exam: Alert, Cooperative, No Acute Distress ABDOMEN EXAM: Soft, Tenderness (mild), Other (incisions clean/dry/intact; MARY w/ minimal serosanguinous fluid) Skin Exam: Nl turgor and temperature Neuro Exam: Normal Speech Psych Exam: Mental status NL, Mood NL Other physical findings catheter draining clear yellow urine Vital Signs/I&O Vital Signs Date Time Temp Pulse Resp B/P (MAP) Pulse Ox O2 Delivery O2 Flow Rate FiO2 03/07/20 06:00 98.0 68 18 129/66 (87) 92 03/07/20 01:39 Room Air 03/06/20 14:03 2.0 I&O- Last 24 Hours up to 6 AM 03/07/20 05:59 Intake Total 3060 ml Output Total 1025 ml Balance 2035 ml Laboratory Data Labs 24H Laboratory Tests 2 03/06/20 12:30: Bedside Glucose (Misc Panel) 271H 03/06/20 12:47: Nucleated Red Blood Cells % (auto) 0.0 03/06/20 12:48: Anion Gap 5L, Glomerular Filtration Rate > 60.0, Calcium Level 8.7L 03/06/20 16:32: Bedside Glucose (Misc Panel) 191H 03/06/20 20:40: Bedside Glucose (Misc Panel) 238H 03/07/20 06:25: Nucleated Red Blood Cells % (auto) 0.0, Anion Gap 4L, Glomerular Filtration Rate > 60.0, Calcium Level 8.5L CBC/BMP Laboratory Tests 03/06/20 12:47 03/06/20 12:48 03/07/20 06:25 FSBS Laboratory Tests Test 03/06/20 12:30 03/06/20 16:32 03/06/20 20:40 Range/Units Bedside Glucose (Misc Panel) 271 191 238 80-115 MG/DL Assessment/Plan Date Seen The patient was seen on 03/07/20. Patient Summary This is a 69 y/o M POD1 s/p L robotic partial nephrectomy. Doing well. Hb stable. Cr 1.1. Good UOP. Plan/VTE VTE Prophylaxis Ordered?: Yes VTE Exclusion Mechanical Proph: N/A:VTE Prophy Ordered Plan/Urinary Catheter Urinary Catheter: D/C Guillory Plan - d/c Guillory - d/c IVF - strict I/Os - cont home meds except eliquis - percocet prn pain - SCDs when in bed - ambulate - incentive spirometry - advance diet as tolerated - possible discharge home later today (will d/c MARY drain prior to discharge) RIP KENYON MD Mar 07, 2020 07:37
[2020-03-07] MEDS: HumaLOG INSULIN (NovoLOG) PER UNIT SC SCH ×4 (07:55→20:57)
[2020-03-07] MEDS: buPROPion 75 MG TAB PO SCH ×2 (08:00→20:58)
[2020-03-07] MEDS: DOCUSATE SODIUM 100 MG CAP PO SCH ×2 (08:00→20:57)
[2020-03-07] MEDS: ASPIRIN 81 MG ENTERIC TAB PO SCH (08:00)
[2020-03-07] MEDS: FERROUS SULFATE 325MG TAB PO SCH (08:00)
[2020-03-07] MEDS: VENLAFAXINE **XR** 75MG CAPSULE PO SCH (08:01)
[2020-03-07] MEDS: METOPROLOL TART 50 MG TAB PO SCH ×2 (08:02→16:34)
[2020-03-07] MEDS ORDERED: FLUBLOK(EGG FREE)(QUAD)INFLUENZA VACC 0.5ML SYRINGE 18YRS & OLDER IM ONE (09:00)
[2020-03-07 10:00] VITALS: BP 126/58
[2020-03-07 14:00] VITALS: BP 120/70
[2020-03-07] MEDS: ACETAMINOPHEN TAB 650MG DOSE (2X325MG) PO PRN (15:05)
[2020-03-07] MEDS ORDERED: DOCU100C16 PO (15:25)
[2020-03-07] MEDS ORDERED: PERCOCET PO (15:25)
[2020-03-07 16:16] VITALS: BP 119/70
[2020-03-07 18:00] VITALS: BP 102/64
[2020-03-07] MEDS: ATORVASTATIN 20 MG TAB PO SCH (20:58)
[2020-03-07 22:00] VITALS: BP 130/67
--- NOTE | 2020-03-07 23:01 | HPEPDOC ---
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 Had a CT abdomen and pelvis done in October that was notable for an enlarging renal mass. His oncologist Dr. Mora does not think there was any other signs of tonsillar cancer recurrence. Given his history of cancer patient was admitted for suspected RCC and underwent partial nephrectomy. mass for pathology. Patient was scheduled for discharge today by Dr. Jennings when patient was noted to have a heart rate in the 130s but was asymptomatic. Patient tells me that during this episode he was not feeling any chest pain or palpitations and that the episode spontaneously resolved after the nurse gave him his metoprolol. I was asked by Dr. Jennings to evaluate the patient due to this episode of A. fib with RVR. At home patient is on insulin and metformin for diabetes. He also takes metoprolol for rate control and is on eliquis. PAST MEDICAL HISTORY: Metastatic tonsillar cancer Atrial fibrillation Insulin-dependent diabetes mellitus Coronary artery disease History of hypertension that had resolved since bariatric surgery and weight loss Strength of sleep apnea PAST SURGICAL HISTORY: Appendectomy at age 10 Ulnar nerve surgery left elbow Per Patient has CAD with coronary bypass Per patient Valve replacement surgery 2017 Bariatric surgery SOCIAL HISTORY: Denies alcohol use over the past 10 years. Drank alcohol prior to this Denies tobacco use Denies illicit drug use FAMILY HISTORY: Father and mother both have diabetes Mother had history of breast cancer ALLERGIES: Please see below. REVIEW OF SYSTEMS: Full 10 system conducted, pertinent positives and negatives reviewed in HPI, all others negative. CV: denies CP, palpitations Resp: denies cough, SOB HOME MEDICATIONS: Please see below. PHYSICAL EXAMINATION: Constitutional: Awake and alert, in no apparent distress ENT: Sclera are clear. Mucosa is moist. Respiratory: Lungs CTA bilaterally. No respiratory distress. No use of accessory muscles. Cardiovascular: Has a regular heart rate at the time he was examined. HR 75 Musculoskeletal: No lower extremity edema. Neurologic: No focal neurological deficit. Mental Status: A&O x3, normal affect LABORATORY DATA: See below. IMAGING: See Chart MICROBIOLOGY: Please see below. 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 Had a CT abdomen and pelvis done in October that was notable for an enlarging renal mass concerning for RCC. Admitted for left partial nephrectomy with intraoperative ultrasound for tumor mapping. Medical team was consulted for patient being in atrial fibrillation with RVR heart rate 130. # A. fib with RVR: Patient was in normal sinus rhythm when he was seen heart rate 75. Heart rate corrected about an hour after he received his evening dose of metoprolol. Observe him overnight on telemetry. Continue metoprolol titrate 50 mg twice a day. Recommend resuming eliquis if no surgical contraindication. # IDDM: ISS, frequent Accu-Cheks, hypoglycemic precautions. # CAD: ASA, statin. Thank you for involving us in the care of this patient. We will continue to follow A [facility] Hospitalist Vital Signs Vital Signs Date Time Temp Pulse Resp B/P (MAP) Pulse Ox O2 Delivery O2 Flow Rate FiO2 03/07/20 21:00 16 Room Air 03/07/20 18:00 98.1 133 102/64 (77) 90 03/06/20 14:03 2.0 Laboratory Data Labs 24H Laboratory Tests 2 03/07/20 06:25: Nucleated Red Blood Cells % (auto) 0.0, Anion Gap 4L, Glomerular Filtration Rate > 60.0, Calcium Level 8.5L 03/07/20 11:34: Bedside Glucose (Misc Panel) 234H 03/07/20 17:05: Bedside Glucose (Misc Panel) 195H 03/07/20 20:22: Bedside Glucose (Misc Panel) 279H CBC/BMP Laboratory Tests 03/07/20 06:25 Home Medications Scheduled Bupropion HCl (Bupropion HCl) 75 Mg Tab, 75 MG PO BID Docusate Sodium (Docusate Sodium) 100 Mg Capsule, 100 MG PO BID Ferrous Sulfate (Ferrous Sulfate) 325 Mg Tab, 325 MG PO DAILY Furosemide (Lasix) 40 Mg Tab, 40 MG PO DAILYPRN Insulin Glargine,Hum.rec.anlog (Lantus Solostar) 100 Unit/1 Ml Insuln.pen, 36 UNIT SC QPM Magnesium Oxide (Magnesium Oxide) 400 Mg Tablet, 400 MG PO BID for constipation Metformin HCl (Metformin HCl) 1,000 Mg Tab, 1,000 MG PO BID Metoprolol Tartrate (Metoprolol Tartrate) 50 Mg Tablet, 50 MG PO BID Multivitamins (Thera M Plus Tablet) 1 Tab Tab, 1 TAB PO DAILY Pembrolizumab (Keytruda) 100 Mg/4 Ml Vial, 100 MG IV Q6WKS Venlafaxine HCl (Effexor Xr) 150 Mg Cap, 150 MG PO DAILY Scheduled PRN Ondansetron HCl (Zofran) 8 Mg Tablet, 1 TAB PO Q6HP PRN for NAUSEA OR VOMITING Oxycodone/Acetaminophen (Oxycodone-Acetaminophen 5-325) 1 Each Tablet, 1 TAB PO Q4H PRN for MODERATE/SEVERE PAIN (PS 5-10) Miscellaneous Medications Aspirin (Aspirin) 81 Mg Tab.chew, 81 MG PO Atorvastatin Calcium (Atorvastatin Calcium) 40 Mg Tablet Allergies Coded Allergies: TAPE (Verified Allergy, Intermediate, BLISTERS, 01/24/19) niacin (Verified Adverse Reaction, Unknown, Red Face, 01/24/19) A-FIB/CHADSVASC A-FIB History Current/History of A-Fib/PAF?: Yes Current PO Anticoag Therapy: Yes JAQUELINE GRAHAM MD Mar 07, 2020 23:01
--- NOTE | 2020-03-08 01:59 | ECGEPIP ---
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
[2020-03-08 02:00] VITALS: BP 129/71
[2020-03-08] MEDS: PERCOCET 5MG/325MG TAB PO PRN ×2 (04:02→11:58)
[2020-03-08 06:00] VITALS: BP 120/62
[2020-03-08 06:23] LABS: HEMATOCRIT 33.7 % (42.0-52.0); HEMOGLOBIN 10.7 g/dl (13.5-17.5); MEAN CORPUSCULAR HEMOGLOBIN 26.6 pg (27.0-33.0); MEAN CORPUSCULAR HGB CONC 31.8 g/dl (32.0-36.5); MEAN CORPUSCULAR VOLUME 83.6 fl (80.0-96.0); PLATELET COUNT, AUTOMATED 221 10^3/uL (150-450); RED BLOOD COUNT 4.03 10^6/uL (4.30-6.10); WHITE BLOOD COUNT 15.2 10^3/uL (4.0-10.0)
[2020-03-08 07:22] LABS: BLOOD UREA NITROGEN 14 MG/DL (7-18); CALCIUM LEVEL 8.4 MG/DL (8.8-10.2); CARBON DIOXIDE LEVEL 29 MEQ/L (21-32); CHLORIDE LEVEL 103 MEQ/L (98-107); CREATININE FOR GFR 1.07 MG/DL (0.70-1.30); GLOMERULAR FILTRATION RATE > 60.0 (>49); GLUCOSE, FASTING 210 MG/DL (70-100); POTASSIUM SERUM 4.3 MEQ/L (3.5-5.1); SODIUM LEVEL 136 MEQ/L (136-145)
--- NOTE | 2020-03-08 07:31 | IPNPDOC ---
Subjective Review oF Systems Chief Complaint The patient is a 69-year-old male admitted with a reason for visit of Renal Mass. Events since Last Encounter Patient was tachycardic later yesterday afternoon to 130s and found to be A fib. He was evaluated by the hospitalist service. His evening dose of metoprolol was given early and he converted back to normal sinus rhythm. He was asymptomatic while in a fib and had no changes in BP. He feels well this am. Has good pain control. No n/v. Tolerating diet. Passing flatus. Ambulating well. No f/c/ns. Objective Physical Examination General Exam: Alert, Cooperative, No Acute Distress ABDOMEN EXAM: Soft, Tenderness (mild), Other (incisions clean/dry/intact; MARY w/ minimal serous fluid) Skin Exam: Nl turgor and temperature Neuro Exam: Normal Speech Psych Exam: Mental status NL, Mood NL Vital Signs/I&O Vital Signs Date Time Temp Pulse Resp B/P (MAP) Pulse Ox O2 Delivery O2 Flow Rate FiO2 03/08/20 06:00 97.0 79 19 120/62 (81) 92 03/08/20 04:32 Room Air 03/06/20 14:03 2.0 I&O- Last 24 Hours up to 6 AM 03/08/20 06:00 Intake Total 2080 ml Output Total 820 ml Balance 1260 ml Laboratory Data Labs 24H Laboratory Tests 2 03/07/20 11:34: Bedside Glucose (Misc Panel) 234H 03/07/20 17:05: Bedside Glucose (Misc Panel) 195H 03/07/20 20:22: Bedside Glucose (Misc Panel) 279H 03/08/20 06:13: Nucleated Red Blood Cells % (auto) 0.0, Anion Gap 4L, Glomerular Filtration Rate > 60.0, Calcium Level 8.4L CBC/BMP Laboratory Tests 03/08/20 06:13 FSBS Laboratory Tests Test 03/07/20 11:34 03/07/20 17:05 03/07/20 20:22 Range/Units Bedside Glucose (Misc Panel) 234 195 279 80-115 MG/DL Assessment/Plan Date Seen The patient was seen on 03/08/20. Patient Summary This is a 69 y/o M POD2 s/p L robotic partial nephrectomy. Doing well. Hb stable at 10.7. Cr 1.1. Good UOP. WBC up a little but other than a low grade temp late yesterday afternoon, his T has been normal. Plan/VTE VTE Prophylaxis Ordered?: Yes VTE Exclusion Mechanical Proph: N/A:VTE Prophy Ordered Plan - d/c MARY - continue home meds - will have to hold eliquis for 2 wks from date of surgery - ambulate - SCDs when in bed - incentive spirometry - regular diet - discharge home today RIP KENYON MD Mar 08, 2020 07:31
[2020-03-08] MEDS: DOCUSATE SODIUM 100 MG CAP PO SCH (08:37)
[2020-03-08] MEDS: ASPIRIN 81 MG ENTERIC TAB PO SCH (08:37)
[2020-03-08] MEDS: VENLAFAXINE **XR** 75MG CAPSULE PO SCH (08:37)
[2020-03-08] MEDS: buPROPion 75 MG TAB PO SCH (08:37)
[2020-03-08] MEDS: FERROUS SULFATE 325MG TAB PO SCH (08:37)
[2020-03-08] MEDS: HumaLOG INSULIN (NovoLOG) PER UNIT SC SCH ×2 (08:38→11:57)
[2020-03-08 08:40] VITALS: BP 121/63
[2020-03-08] MEDS: METOPROLOL TART 50 MG TAB PO SCH (08:40)
[2020-03-08 14:00] VITALS: BP 141/68
--- NOTE | 2020-03-11 10:10 | DSES ---
DATE OF ADMISSION: 03/06/2020 DATE OF DISCHARGE: 03/08/2020 ADMISSION DIAGNOSIS: Left renal mass. DISCHARGE DIAGNOSIS: Left renal cell carcinoma. ADMITTING PHYSICIAN: Neftaly Jennings MD DISCHARGE PHYSICIAN: Neftaly Jennings MD PROCEDURES PERFORMED: Left robotic-assisted laparoscopic partial nephrectomy on March 06, 2020. HISTORY OF PRESENT ILLNESS: This is a 69-year-old male who was found to have an approximately 1.5 cm enhancing lesion on the upper pole of his left kidney. He underwent the above-listed surgery. He was admitted to the hospital postoperatively. HOSPITALIZATION COURSE: The patient was admitted to the hospital after undergoing the above-listed procedure on March 06, 2020. Postoperatively he did very well. On postoperative day one he had good pain control and was ambulating well. His diet was advanced to a regular diet and he tolerated that without any nausea or vomiting. His catheter was removed and he voided well without any difficulty. His labs were notable for a hemoglobin level of around 10.8. His serum creatinine remained stable at about 1.1. He had good urine output. He was being readied for discharge home on postoperative day one but around the time that he was about to get discharged his vital signs were checked and were notable for tachycardia with his heart rate in the 130s. This was thought to potentially be due to pain and therefore he was given pain medications and this did not improve. We therefore gave him his evening dose of metoprolol early and at first it did not seem to improve with that. An EKG was performed and it was notable for atrial fibrillation. The hospitalist service was consulted, and by the time they evaluated him, his heart rate had come back down to normal due to the metoprolol that had been given earlier. He was completely asymptomatic during the time that he was tachycardic. His blood pressure remained stable in normal ranges. He was monitored throughout the night into the next morning. He did not have any additional episodes of atrial fibrillation. Of note, he has a history of atrial fibrillation. Since he was doing well on postoperative day two and his labs remained stable, he was deemed ready for discharge home. His Jose-Banegas drain was removed. He was discharged home with the plan for him to follow up in the Urology Clinic in about one to two weeks for a postoperative visit. IVORY
== END 2020-03-08 14:15 | disposition home or self-care (01) | DRG 658 ==
LOC: M OR 06:13 → M MSPAV 14:37
PROVIDERS: ADMIT Urology; ATTEND Urology
PROC: 8E0W4CZ Robotic Assisted Procedure of Trunk Region, Percutaneous Endoscopic Approach (ICD-10-PCS; 2020-03-06)
PROC: BT42ZZZ Ultrasonography of Left Kidney (ICD-10-PCS; 2020-03-06)
PROC: 0TB14ZZ Excision of Left Kidney, Percutaneous Endoscopic Approach (ICD-10-PCS; principal; 2020-03-06 07:30)
DX: C64.2 Malignant neoplasm of left kidney, except renal pelvis (principal); I48.91 Unspecified atrial fibrillation; E11.9 Type 2 diabetes mellitus without complications; I25.10 Atherosclerotic heart disease of native coronary artery without angina pectoris; Z90.49 Acquired absence of other specified parts of digestive tract; Z85.818 Personal history of malignant neoplasm of other sites of lip, oral cavity, and pharynx; Z79.84 Long term (current) use of oral hypoglycemic drugs; Z79.899 Other long term (current) drug therapy; Z88.8 Allergy status to other drugs, medicaments and biological substances; Z91.048 Other nonmedicinal substance allergy status

== ENCOUNTER → 2020-03-22 | Outpatient (CLI) | payer MEDICARE ==
[~2020-03-22] MED LIST changes: +ATOR40TA75; +DOCU100C16 PO; -LR 1,000 ML IV SCH; -ceFAZolin SOD 2 GM in IV 1 EA IV ONE
[2020-03-22 11:42] LABS: HEMATOCRIT 34.8 % (42.0-52.0); MEAN CORPUSCULAR HEMOGLOBIN 26.2 pg (27.0-33.0); MEAN CORPUSCULAR HGB CONC 31.6 g/dl (32.0-36.5); MEAN CORPUSCULAR VOLUME 82.9 fl (80.0-96.0); PLATELET COUNT, AUTOMATED 501 10^3/uL (150-450); WHITE BLOOD COUNT 13.5 10^3/uL (4.0-10.0)
[2020-03-22 12:12] LABS: BLOOD UREA NITROGEN 19 MG/DL (7-18); CARBON DIOXIDE LEVEL 30 MEQ/L (21-32); CHLORIDE LEVEL 105 MEQ/L (98-107); CREATININE FOR GFR 1.01 MG/DL (0.70-1.30); GLOMERULAR FILTRATION RATE > 60.0 (>49); GLUCOSE, FASTING 116 MG/DL (70-100); SODIUM LEVEL 140 MEQ/L (136-145)
== END ==
LOC: M LAB 10:01
PROVIDERS: ATTEND Urology
DX: C64.2 Malignant neoplasm of left kidney, except renal pelvis (principal)

== ENCOUNTER → 2020-06-03 | Outpatient (CLI) | payer MEDICARE ==
[~2020-06-03] MED LIST changes: -ATOR40TA75; +CYAN500T14 PO; -CYAN500T8 PO; +GASTROGRAFIN SOLUTION 30ML (Q9963) As Ordered ONE; +ISOVUE-370 76% 100ML VIAL As Ordered ONE; +ONDA8TAB10 PO
--- NOTE | 2020-06-03 11:45 | REPVR ---
PROCEDURE INFORMATION: Exam: CT Neck With Contrast Exam date and time: 06/03/2020 11:20 AM Age: 70 years old Clinical indication: Neck pain; Additional info: Anemia TECHNIQUE: Imaging protocol: Computed tomography images of the neck with intravenous contrast. Radiation optimization: All CT scans at this facility use at least one of these dose optimization techniques: automated exposure control; mA and/or kV adjustment per patient size (includes targeted exams where dose is matched to clinical indication); or iterative reconstruction. Contrast material: ISOVUE 370; Contrast volume: 100 ml; Contrast route: INTRAVENOUS (IV); COMPARISON: No relevant prior studies available. FINDINGS: Nasopharynx: Unremarkable. Oropharynx: Unremarkable. No significant tonsillar enlargement. Hypopharynx: Unremarkable. Larynx: Unremarkable. Normal epiglottis. Retropharyngeal space: Unremarkable. Submandibular/Parotid glands: Normal. Glands are normal in size. Thyroid: Normal. No enlarged or calcified nodules. Lymph nodes: Unremarkable. No lymphadenopathy. Trachea: Visualized trachea is unremarkable. Lungs: There are biapical blebs. Bones/joints: There is mild reversal of the normal cervical lordosis. Vasculature: The ascending aorta is ectatic, measuring up to 3.9 cm in diameter. The right internal jugular vein is not visualized proximal to the C4/5 level. This may be secondary to prior neck dissection. Soft tissues: Postoperative changes involve the right neck, with stranding and irregularity of the right sternocleidomastoid muscle. This presumably reflects right-sided neck dissection.. IMPRESSION: No acute soft tissue abnormality. Suspected post treatment changes involving the right neck. Electronically signed by: Sonia Barrios On 06/03/2020 11:45:22 AM
--- NOTE | 2020-06-03 13:12 | REP ---
INDICATION: ANEMIA. Carcinoma of the tonsil.. COMPARISON: 24 November 2019.. TECHNIQUE: 100 mL of intravenous Isovue 370 is administered and helical scanning is acquired. 3 mm axial images are generated. Coronal and sagittal MPR images are provided. FINDINGS: Preliminary digital fire safety inspector radiograph shows median sternotomy wires and a left atrial appendage clip. There is good opacification of the pulmonary arterial tree and the thoracic aorta. There is no evidence of pulmonary embolus, dissection, or aneurysm. There is mild vascular calcification. No hilar or mediastinal mass is observed. There are 2 or 3 normal-sized mediastinal lymph nodes which are unchanged in size from 24 November 2019 study. There is a small sliding-type hiatal hernia again noted. No new mass or adenopathy is seen. There is a thin sliver of pleural thickening or fluid at the right base which9 appears to be a new finding. There is fissural thickening in the minor fissure and laterally in the major fissure. There is slight blunting of the posterior pleural angle on sagittal multiplanar reformations images. There is some subpleural fibrosis in the right anterior lung base. There are peribronchovascular interstitial changes in the left lower lobe just above the diaphragm which appear to be inflammatory. These are new. There is similar minimal changes in the right lower lobe posteriorly. The 2 previously identified subcentimeter nodules in the right upper lobe and left upper lobe are again seen unchanged from the June 19, 2019 study. Today's study demonstrates a new 5 mm noncalcified pulmonary nodule in the left lower lobe. This projects on page 77 of 112 in series 304 of today's study. It is adjacent to the inflammatory changes. It is of uncertain significance. No other new nodule is appreciated. No bony destructive lesion is seen. Postoperative changes are seen in the upper abdomen. IMPRESSION: Small amount of right pleural fluid is noted today and there are mild bibasilar inflammatory changes in the lower lung avalos. There is a new 5 mm noncalcified pulmonary nodule in the left lower lobe. The 2 previously noted upper lobe nodules are unchanged. Stable lymph nodes. <Electronically signed by Hernando Mandel > 06/03/20 [id number]
--- NOTE | 2020-06-03 13:16 | REP ---
INDICATION: ANEMIA. COMPARISON: Comparison CT abdomen pelvis November 24, 2019 and June 19, 2019.. TECHNIQUE: Helical scanning is acquired and 3 mm axial images re-formatted. Coronal and sagittal MPR images are generated. The CT contrast enhancement dose is 100 mL of intravenous Isovue 370. FINDINGS: Preliminary digital technology lab teacher radiograph shows an unremarkable bowel gas pattern. The liver and the spleen are normal in size homogeneous in texture. Normal adrenal glands are observed bilaterally. The gallbladder appears mildly distended today but is homogeneous in texture. It has an 11 cm greatest dimension. This finding is unchanged. No abnormality is noted in the pancreas. The patient is apparently status post gastric bypass. There are post surgical changes at the upper pole the left kidney consistent with previous partial nephrectomy. No recurrent mass lesion is seen. There is a 3.4 cm cyst in the lower pole of the left kidney unchanged. Kidneys are otherwise morphologically intact. No retroperitoneal mass or adenopathy is seen. The appendix is surgically absent. Small and large bowel loops, opacified with oral contrast are unremarkable. Except for postoperative changes. Urinary bladder is unremarkable. Prostate and seminal vesicles are unremarkable. No abdominal wall defect is seen. IMPRESSION: No evidence of mass or adenopathy seen. Postoperative changes as above. Gallbladder dilation. <Electronically signed by Hernando Mandel > 06/03/20 [id number]
== END ==
LOC: M RAD 08:57
PROVIDERS: ATTEND Internal Medicine Medical Oncology
DX: C09.9 Malignant neoplasm of tonsil, unspecified (principal); D64.9 Anemia, unspecified
CPT/HCPCS: 70491; 71260; 74177; Q9963; Q9967

== ENCOUNTER → 2020-06-07 | Outpatient (REF) | payer MEDICARE ==
[~2020-06-07] MED LIST changes: -GASTROGRAFIN SOLUTION 30ML (Q9963) As Ordered ONE; -ISOVUE-370 76% 100ML VIAL As Ordered ONE
== END ==
LOC: M LAB REF 15:24
PROVIDERS: ATTEND Internal Medicine Medical Oncology
DX: R19.7 Diarrhea, unspecified (principal)

== ENCOUNTER → 2020-09-12 | Outpatient (CLI) | payer MEDICARE ==
[~2020-09-12] MED LIST changes: +COVI30VI IM; +GASTROGRAFIN SOLUTION 30ML (Q9963) As Ordered ONE; +ISOVUE-370 76% 100ML VIAL As Ordered ONE
--- NOTE | 2020-09-12 18:23 | REPVR ---
PROCEDURE INFORMATION: Exam: CT Neck With Contrast Exam date and time: 09/12/2020 5:19 PM Age: 70 years old Clinical indication: Other: Tonsil CA TECHNIQUE: Imaging protocol: Computed tomography images of the neck with contrast. Radiation optimization: All CT scans at this facility use at least one of these dose optimization techniques: automated exposure control; mA and/or kV adjustment per patient size (includes targeted exams where dose is matched to clinical indication); or iterative reconstruction. Contrast material: ISOVUE 370; Contrast volume: 100 ml; Contrast route: INTRA-ARTERIAL (ARTERIAL); COMPARISON: CT Neck with contrast 06/03/2020 11:14 AM FINDINGS: Nasopharynx: Unremarkable. Oropharynx: There is asymmetry of the tonsils similar to the previous examination. Hypopharynx: Unremarkable. Larynx: The the normal sized epiglottis. Normal appearing glottis. Retropharyngeal space: Unremarkable. Submandibular/Parotid glands: The parotid glands appear symmetric. The left submandibular gland is small compared to the right. There is scarring along the right submandibular gland and sternocleidomastoid muscle similar to the previous exam Thyroid: Normal. No enlarged or calcified nodules. Lymph nodes: There is a 1.2 cm lymph node right posterior triangle region and new since the 06/03/2020. Trachea: Deviates to the right. Clear apical portions of the lung. Bones/joints: There is reversal of the normal cervical curve. Soft tissues: Unremarkable. No significant soft tissue swelling. IMPRESSION: There is a 1.5 cm enlarged lymph node in the right side of the neck/posterior triangle at the level of the carotid bifurcation. This is increased in size since June. Electronically signed by: Matt Bang On 09/12/2020 18:22:55 PM
--- NOTE | 2020-09-13 10:29 | REP ---
INDICATION: TONSIL CA. COMPARISON: Multiple the latest 06/03/2020 TECHNIQUE: Standard helical technique after the intravenous administration of 100 cc Isovue 370. FINDINGS: The liver, gallbladder, spleen, pancreas, adrenal glands, and kidneys are essentially unchanged. Postop changes again seen superior pole left kidney. There is no change in the abdominal aorta or para-regions. There is no significant change in the bowel loops or the mesenteries. There is no free fluid or free air. The osseous structures have a stable appearance. IMPRESSION: Stable exam, as described above, no evidence of acute disease. Sign report <Electronically signed by Vincent Santos > 09/13/20 [id number]
--- NOTE | 2020-09-13 10:37 | REP ---
INDICATION: TONSIL CA COMPARISON: Multiple the latest 06/03/2020 TECHNIQUE: Standard helical technique after the intravenous administration of 100 cc Isovue 370 FINDINGS: The mediastinum and pulmonary christiano are unchanged. No adenopathy or mass has developed. Small and borderline lymph node status quo. The right-sided pleural effusion seen previously has gotten slightly larger. There is no pericardial effusion. The osseous structures appear stable. Evaluation of the lung avalos shows no significant change in appearance of the nodules and asymmetric densities in the right lower lobe. IMPRESSION: 1. Although there is no appreciable change in appearance of the lung avalos, as described above, I am still somewhat concerned over the slight increase in the right pleural fluid collection. Consider CT-PET at this time if clinically relevant. At least, close interval follow-up CT is recommended. 2. Other findings as described above. <Electronically signed by Vincent Santos > 09/13/20 [id number]
== END ==
LOC: M RAD 14:58
PROVIDERS: ATTEND Internal Medicine Medical Oncology
DX: C09.9 Malignant neoplasm of tonsil, unspecified (principal)
CPT/HCPCS: 70491; 71260; 74177; Q9963; Q9967

== ENCOUNTER → 2020-11-11 | Outpatient (CLI) | payer MEDICARE ==
[~2020-11-11] MED LIST changes: -GASTROGRAFIN SOLUTION 30ML (Q9963) As Ordered ONE; -ISOVUE-370 76% 100ML VIAL As Ordered ONE
--- NOTE | 2020-11-12 08:46 | REP ---
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 Bulky cervical lymphadenopathy, mediastinal lymphadenopathy, and pulmonary metastases in January 2018. History left side renal cell carcinoma in 2019 status post partial nephrectomy. Immunotherapy. COMPARISON: None. Comparison PET-CT study January 04, 2018. Comparison CT study of the soft tissues of the neck September 12, [address] study of the chest abdomen pelvis from that same date. TECHNIQUE: Sixty-two minutes following the intravenous injection of a 9.12 mCi dose of F-18 FDG, three-dimensional PET scintigraphy is acquired from the skull base to the proximal thighs. Triplanar noncontrast CT scanning is acquired through the same anatomic range for attenuation correction, and image registration with scan parameters optimized to minimize radiation exposure to the patient. PET scintigraphy and CT datasets were fused and displayed on a workstation with multiplanar and projection display capability. FINDINGS: There is a recurrent infiltrative mass in the right neck along the mid sternocleidomastoid muscle adjacent to the carotid and jugular vessels. This is hypermetabolic. Maximum standard uptake value is 11.96. Tonsillar bed uptake is normal and symmetric. In addition, there is hypermetabolic supraclavicular adenopathy on the right with a small node maximum standard uptake value 5.54. There is left supraclavicular hypermetabolic keturah uptake, maximum standard uptake value 7.25. At the thoracic inlet N in the superior mediastinum, there are several hypermetabolic lymph nodes consistent with metastatic deposits. Maximum standard uptake value in the mediastinal adenopathy ranges up to 6.46. There is mildly hypermetabolic pleural uptake in the posterior lung gutter in this patient with small right pleural effusion. Maximum standard uptake value in this pleural area is 3.14. There is a visible subcentimeter lymph node in the right mid lung zone without discernible FDG accumulation. No other pulmonary parenchymal uptake. In the abdomen and pelvis, there is no abnormal hypermetabolic uptake. A left renal cyst is observed. Patient is status post gastric bypass procedure, median sternotomy with left atrial appendage clamping, and upper pole partial nephrectomy on the left. IMPRESSION: There is evidence of recurrent keturah disease in the right neck, bilateral supraclavicular, and superior mediastinal region. <Electronically signed by Hernando Mandel > 11/12/20 [id number]
== END ==
LOC: M PLARAD 10:50
PROVIDERS: ATTEND Internal Medicine Medical Oncology
DX: C09.9 Malignant neoplasm of tonsil, unspecified (principal)
CPT/HCPCS: 78815; A9552

== ENCOUNTER → 2020-12-10 | Outpatient (CLI) | payer MEDICARE ==
[~2020-12-10] MED LIST changes: +E-Z-GAS II EFFERVESCENT PACKET (SODIUM BICARB./CITRIC ACID/SIMETHICONE) As Ordered ONE; +LIDOCAINE 1% MDV 20ML VIAL As Ordered ONE; +SODIUM BICARBONATE 8.4% INJ 50MEQ 50 ML VIAL As Ordered ONE
[2020-12-10 13:08] VITALS: BP 106/56
--- NOTE | 2020-12-10 17:06 | REP ---
INDICATION: RIGHT NECK LYMPHNODE. COMPARISON: None. TECHNIQUE: The procedure was performed by Caitlin Gutierrez [facility], under the direct supervision of Dr. Mandel. The risks and benefits of the procedure were explained to the patient and an informed consent was obtained both verbally and written. Directly prior to the start of the procedure a formal time-out was completed in the procedure room. FINDINGS: Using ultrasound guidance the right lymph node was localized. Due to the location of the lymph node it was determined that a fine needle aspiration would be the safest approach. The skin was prepped and draped in a sterile fashion. Two mL of buffered lidocaine was used as a local anesthetic. Using ultrasound guidance a 8 fine needle aspirations were obtained using 25 gauge needles. Four specimens were sent to our lab here, and remaining 4 were sent out in RPMI solution, for further testing. The patient tolerated the procedure well and there were no immediate complications. After the appropriate amount of monitored convalescence the patient was discharged from the department. IMPRESSION: 1. Ultrasound-guided right neck lymph node biopsy. <Electronically signed by Caitlin Gutierrez > 12/10/20 1540 <Electronically signed by Hernando Mandel > 12/10/20 1707
== END ==
LOC: M IRPRO 12:52
PROVIDERS: ATTEND Internal Medicine Medical Oncology
DX: C77.0 Secondary and unspecified malignant neoplasm of lymph nodes of head, face and neck (principal)

== ENCOUNTER 2021-01-11 12:34 | Inpatient (IN) | payer MEDICARE ==
[~2021-01-11] VITALS: Ht 172.7 cm; Wt 118.0 kg
[~2021-01-11 12:34] MED LIST changes: +DEXA4TA PO; -E-Z-GAS II EFFERVESCENT PACKET (SODIUM BICARB./CITRIC ACID/SIMETHICONE) As Ordered ONE; -LIDOCAINE 1% MDV 20ML VIAL As Ordered ONE; +OXYC1TAB23 PO; -SODIUM BICARBONATE 8.4% INJ 50MEQ 50 ML VIAL As Ordered ONE
[2021-01-11 13:25] LABS: HEMATOCRIT 35.4 % (42.0-52.0); HEMOGLOBIN 12.1 g/dl (13.5-17.5); MEAN CORPUSCULAR HEMOGLOBIN 27.1 pg (27.0-33.0); MEAN CORPUSCULAR HGB CONC 34.2 g/dl (32.0-36.5); MEAN CORPUSCULAR VOLUME 79.4 fl (80.0-96.0); PLATELET COUNT, AUTOMATED 191 10^3/uL (150-450); RED BLOOD COUNT 4.46 10^6/uL (4.30-6.10); WHITE BLOOD COUNT 13.3 10^3/uL (4.0-10.0)
[2021-01-11] MEDS ORDERED: NS 1,000 ML IV ONE (13:25)
[2021-01-11 13:51] LABS: ALBUMIN 2.2 GM/DL (3.2-5.2); ALT/SGPT 38 U/L (12-78); BILIRUBIN,TOTAL 0.8 MG/DL (0.2-1.0); BLOOD UREA NITROGEN 27 MG/DL (7-18); CALCIUM LEVEL 8.3 MG/DL (8.8-10.2); CARBON DIOXIDE LEVEL 26 MEQ/L (21-32); CHLORIDE LEVEL 96 MEQ/L (98-107); CREATININE FOR GFR 1.18 MG/DL (0.70-1.30); GLOMERULAR FILTRATION RATE > 60.0 (>49); GLUCOSE, FASTING 236 MG/DL (70-100); POTASSIUM SERUM 3.8 MEQ/L (3.5-5.1); SODIUM LEVEL 133 MEQ/L (136-145); TOTAL PROTEIN 5.7 GM/DL (6.4-8.2)
[2021-01-11 13:52] LABS: ATYPICAL LYMPH 1 % (0-5); LYMPHOCYTES 18 % (16-44); METAMYELOCYTES 1 % (0-0); MONOCYTES 7 % (0-5); MYELOCYTES 1 % (0-0); NEUTROPHILS 67 % (28-66)
[2021-01-11 13:54] LABS: PLATELET ESTIMATE NORMAL (NORMAL)
[2021-01-11 15:01] LABS: RSV AMPLIFICATION POSITIVE (NEGATIVE)
[2021-01-11 15:30] VITALS: BP 139/84
[2021-01-11] MEDS ORDERED: HOME MED LIST COMPLETE! XX SCH (15:30)
[2021-01-11] MEDS: NS 1,000 ML IV SCH ×2 (16:09→20:15)
[2021-01-11] MEDS ORDERED: PERCOCET 5MG/325MG TAB PO PRN (16:15)
[2021-01-11] MEDS ORDERED: METOPROLOL TART 25 MG TABLET PO ONE (16:35)
[2021-01-11] MEDS ORDERED: DEXTROSE 50% 50 ML SYRINGE IV PRN (16:35)
[2021-01-11] MEDS ORDERED: GLUCOSE 4GM CHEW TABLET PO PRN (16:35)
[2021-01-11] MEDS ORDERED: GLUCAGON INJ 1MG VIAL SC PRN (16:35)
[2021-01-11] MEDS ORDERED: ONDANSETRON 4MG/2ML VIAL IV PRN (16:45)
--- NOTE | 2021-01-11 17:17 | HPEPDOC ---
General Date of Admission Jan 11, 2021 at 14:41 Date of Service: Jan 11, 2021 Chief Complaint The patient is a 70-year-old male admitted with a reason for visit of General Weakness,Dehydration,Failure To Thrive. History of Present Illness Mr. Walls is a 70-year-old male with renal cell carcinoma and tonsillar cancer who is here for nausea, poor oral intake, and generalized weakness. He says s blaze chemotherapy his nausea has been chronic. Denies any vomiting. About 9 days ago they switched his chemotherapy. He tells me that his nausea has not changed but about 3 days ago he felt so weak he could not get up or fix himself food. He does have fluid in the house, but no energy to make it. He tells if he does not make his nausea worse. He denies any vomiting or abdominal pain. He reports watery diarrhea that feels like it never stops. EMS brought patient to the ED. Patient was tachycardic but not hypotensive. He does not have any PAVAN. On physical exam, his oral mucosa is dry. He does have an appetite. Otherwise on physical exam, he is noted to have a left facial droop. Patient also noticed this himself over the last 3 days. Patient will be admitted for dehydration and generalized weakness secondary to chemotherapy versus CVA. Home Medications Scheduled Apixaban (Eliquis) 5 Mg Tablet, 5 MG PO BID, (Reported) Atorvastatin Calcium (Atorvastatin Calcium) 40 Mg Tablet, 40 MG PO QHS, (Reported) Bupropion HCl (Bupropion HCl) 75 Mg Tab, 75 MG PO BID, (Reported) Covid-19 Vacc, Mrna(Jelli)/Pf (Jelli Covid19 Vacc (Unapprov)) 30 Mcg/0.3 Ml Vial, 30 MCG IM ASDIRECTED, (Reported) Dexamethasone (Dexamethasone) 4 Mg Tablet, 8 MG PO BID take 2 tabs by mouth twice a day the day before chemo, the day of chemo, and the day after chemo Ferrous Sulfate (Ferrous Sulfate) 325 Mg Tab, 325 MG PO DAILY, (Reported) Insulin Glargine,Hum.rec.anlog (Lantus Solostar) 100 Unit/1 Ml Insuln.pen, 36 UNIT SC QPM, (Reported) Magnesium Oxide (Magnesium Oxide) 400 Mg Tablet, 400 MG PO BID, (Reported) Metformin HCl (Metformin HCl) 1,000 Mg Tab, 1,000 MG PO BID, (Reported) Metoprolol Tartrate (Metoprolol Tartrate) 50 Mg Tablet, 50 MG PO BID, (Reported) Multivitamins (Thera M Plus Tablet) 1 Tab Tab, 1 TAB PO DAILY, (Reported) Ondansetron HCl (Ondansetron HCl) 8 Mg Tablet, 8 MG PO TID for nausea/vomiting Venlafaxine HCl (Effexor Xr) 150 Mg Cap, 150 MG PO DAILY, (Reported) Scheduled PRN Furosemide (Lasix) 40 Mg Tab, 40 MG PO DAILY PRN for SWELLING, (Reported) Oxycodone HCl/Acetaminophen (Oxycodone-Acetaminophen 5-325) 1 Each Tablet, 1 TAB PO Q6H PRN for pain Allergies Coded Allergies: TAPE (Verified Allergy, Intermediate, BLISTERS, 01/24/19) niacin (Verified Adverse Reaction, Unknown, Red Face, 01/24/19) Past Medical History Medical History 1. 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 Insulin-dependent diabetes mellitus 3. Atrial fibrillation 4. Renal cell carcinoma of the left kidney 5. CAD 6. Hypertension 7. Sleep apnea Surgical History 1. Appendectomy at age 10 2. Ulnar nerve surgery of the left elbow 3. Per patient, coronary bypass 4. Per patient, valve replacement 5. Bariatric surgery 6. Partial left nephrectomy for renal cell carcinoma in March 2020 Family History Father: History of diabetes mellitus Mother: History of diabetes mellitus Social History * Smoker: former Smoker Alcohol: Denies Drugs: denies A-FIB/CHADSVASC A-FIB History Current/History of A-Fib/PAF?: Yes Current PO Anticoag Therapy: Yes Review of Systems Constitutional: Denies: Chills, Fever Eyes: Denies: Vision change ENT: Denies: Post Nasal Drip Skin: Denies: Rash Pulmonary: Reports: Dyspnea (Chronic); Denies: Cough Cardiovascular: Denies: Chest Pain Gastrointestinal: Reports: Nausea, Diarrhea; Denies: Vomiting, Abdominal Pain Genitourinary: Denies: Dysuria Hematologic: Denies: Bruising Neurological: Denies: Numbness Psych: Reports: Depression; Denies: Anxiety Physical Examination General Exam: Positive: Alert, Cooperative Eye Exam: Negative: Sclera icteric ENT Exam: Positive: Other ENT (Oral mucosa dry) Neck Exam: Positive: Supple Chest Exam: Positive: Clear to auscultation Heart Exam: Positive: Tachycardic Abdomen Exam: Positive: Normal bowel sounds, Soft; Negative: Tenderness Extremity Exam: Positive: Edema Neuro Exam: Positive: Other (Left-sided facial) Psych Exam: Positive: Mental status NL, Mood NL Vital Signs Vital Signs Date Time Temp Pulse Resp B/P (MAP) Pulse Ox O2 Delivery O2 Flow Rate FiO2 01/11/21 15:30 97.7 106 22 139/84 (102) 93 Nasal Cannula 2.0 Laboratory Data Labs 24H Laboratory Tests 2 01/11/21 13:12: Immature Granulocyte % (Auto) , Neutrophils (%) (Auto) , Nucleated Red Blood Cells % (auto) 0.0, Neutrophils 67H, Band Neutrophils 5, Lymphocytes (Manual) 18, Monocytes (Manual) 7H, Metamyelocytes 1H, Myelocytes 1H, Atypical Lymphocytes 1, Red Blood Cell Morphology NORMAL, Platelet Estimate NORMAL, Anion Gap 11, Glomerular Filtration Rate > 60.0, Calcium Level 8.3L, Total Bilirubin 0.8, Aspartate Amino Transf (AST/SGOT) 37, Alanine Aminotransferase (ALT/SGPT) 38, Alkaline Phosphatase 75, Total Protein 5.7L, Albumin 2.2L, Albumin/Globulin Ratio 0.6 01/11/21 14:01: Coronavirus (COVID-19)(PCR) NEGATIVE, Influenza Type A (RT-PCR) NEGATIVE, Influenza Type B (RT-PCR) NEGATIVE, Respiratory Syncytial Virus (PCR) POSITIVE CBC/BMP Laboratory Tests 01/11/21 13:12 Assessment/Plan Mr. Walls is a 70-year-old male with renal cell carcinoma and tonsillar cancer who is here for nausea, poor oral intake, and generalized weakness. This may be an adverse reaction to starting new chemotherapy versus CVA. Patient tells me he has an appetite, but did not have any energy to make himself food. Otherwise patient appears clinically dry. We will give patient IV fluids and omeprazole. Since patient has an appetite, will try a carbohydrate consistent diet. Will order physical therapy for patient's generalized weakness. Plan / VTE VTE Prophylaxis Ordered?: Yes Plan Plan 1. Generalized weakness/failure to thrive Patient has not been able to get out of bed for 3 days May be secondary to new chemotherapy versus CVA Supportive care with IV fluids and carbohydrate consistent diet PT ordered to evaluate ambulation and if patient will need rehab 2. Nausea Secondary to chemotherapy Food does not alter nausea We will do a trial of carbohydrate consistent diet Start Protonix 3. Left facial droop Patient has noticed this for the past 3 days We will order a CT head to evaluate 4. Atrial fibrillation on Eliquis Continue metoprolol for rate control Continue Eliquis for anticoagulation 5. Insulin-dependent diabetes mellitus Sliding scale insulin We will reduce basal insulin as patient will be on a controlled diet 6. Hyperlipidemia Continue atorvastatin 7. Chronic pain Continue Percocet 8. Anxiety/depression Continue Effexor and bupropion 9. DVT prophylaxis Patient is on Eliquis Disposition: Pending CT head results and physical therapy evaluation SHAYNA VOGT DO Jan 11, 2021 17:17
[2021-01-11] MEDS: HumaLOG INSULIN (NovoLOG) PER UNIT SC SCH ×2 (17:21→21:00)
[2021-01-11] MEDS: FERROUS SULFATE 325MG TAB PO SCH (17:22)
[2021-01-11] MEDS: MULTIVITAMINS/MINERALS THERAP 1 TAB PO SCH (17:22)
[2021-01-11] MEDS: VENLAFAXINE **XR** 75MG CAPSULE PO SCH (17:22)
--- NOTE | 2021-01-11 19:00 | REPVR ---
PROCEDURE INFORMATION: Exam: CT Head Without Contrast Exam date and time: 01/11/2021 5:42 PM Age: 70 years old Clinical indication: Other: Left sided facial droop TECHNIQUE: Imaging protocol: Computed tomography of the head without contrast. Radiation optimization: All CT scans at this facility use at least one of these dose optimization techniques: automated exposure control; mA and/or kV adjustment per patient size (includes targeted exams where dose is matched to clinical indication); or iterative reconstruction. COMPARISON: PET/CT Skull/mid thigh 11/11/2020 1:39 PM FINDINGS: Brain: There is a linear area of low density left external capsule region and consistent with ischemic change. To exclude any possibility of this being acute I would suggest correlation with an MRI. Normal appearing ventricles. No evidence of mass effect. Paranasal sinuses: There is moderate mucosal thickening right maxillary sinus. There is partial opacification of the posterior sphenoid sinus which may be secondary to a mucous retention cyst or mucosal thickening. Vasculature: There is calcification of the carotid siphon bilaterally. Bones/joints: There is no evidence of fracture. Soft tissues: There is no evidence of soft tissue swelling. Other findings: There is no evidence of acute bleed. IMPRESSION: [place] shaped area of low density left external capsule region consistent with an area of ischemic change. To determine if this is acute or chronic suggest MRI. Electronically signed by: Matt Bang On 01/11/2021 19:00:15 PM
[2021-01-11] MEDS: buPROPion 75 MG TAB PO SCH (20:12)
[2021-01-11] MEDS: ATORVASTATIN 20 MG TAB PO SCH (20:13)
[2021-01-11] MEDS: MAGNESIUM OXIDE 400MG TAB (MAG-OX) PO SCH (20:13)
[2021-01-11] MEDS: METOPROLOL TART 50 MG TAB PO SCH (20:14)
[2021-01-11] MEDS: PANTOPRAZOLE 40MG TAB (PROTONIX) PO SCH (20:14)
[2021-01-11] MEDS: APIXABAN 5 MG TAB (ELIQUIS) PO SCH (21:00)
--- NOTE | 2021-01-11 22:54 | REPVR ---
PROCEDURE INFORMATION: Exam: MR Head Without Contrast Exam date and time: 01/11/2021 10:08 PM Age: 70 years old Clinical indication: Abnormal findings; Abnormal radiologic findings of head/skull; Ischemia; Patient HX: CT suggest possible acute CVA TECHNIQUE: Imaging protocol: MR of the head without contrast. COMPARISON: CT Head without contrast 01/11/2021 5:12 PM FINDINGS: Brain: There is no evidence of acute stroke. The crescent-shaped area of low density left external capsule on CT is seen as an area of bright signal intensity on the FLAIR sequence and all consistent with an area of old ischemic change. In addition there are several small round areas of bright signal intensity through the white matter probably the result of chronic ischemic changes. There is a 5 mm round area of low signal intensity right frontal lobe near the vertex. This could represent a small hemosiderin deposit associated with a small angioma. This is only seen on the gradient sequence. MRI with contrast would be helpful for this. IMPRESSION: 1. Chronic ischemic changes. No evidence of acute stroke. 2. 5 mm area of low signal intensity right frontal lobe on the gradient sequence could be the masseter in associated with a small angioma and suggest MRI with contrast. Electronically signed by: Matt Bang On 01/11/2021 22:54:28 PM
--- NOTE | 2021-01-11 23:03 | REPVR ---
PROCEDURE INFORMATION: Exam: MRA Head Without Contrast; Arteriography Exam date and time: 01/11/2021 10:08 PM Age: 70 years old Clinical indication: Abnormal findings; Abnormal CT of the head; Patient HX: CT suggest possible acute CVA TECHNIQUE: Imaging protocol: Magnetic resonance angiography head without contrast. Exam focused on the arteries. COMPARISON: CT Head without contrast 01/11/2021 5:12 PM FINDINGS: Right vertebral artery: The right vertebral artery is smaller than the left and the basilar artery is tortuous. There is no evidence of aneurysm of the [id number]. The middle cerebral vessels have a normal appearance. Sinuses: There is mucosal thickening of the right maxillary sinus consistent with previous changes of sinusitis. Other findings: The torcula has a signal void. IMPRESSION: 1. Normal appearing MRI of the brain. 2. Mucosal thickening right maxillary sinus consistent with changes of sinusitis. Electronically signed by: Matt Bang On 01/11/2021 23:03:19 PM
[2021-01-11] MEDS: LEVEMIR (INSULIN DETEMIR) 1 UNITS/0.01ML SC SCH (23:27)
[2021-01-12 00:57] VITALS: BP 137/72
[2021-01-12 05:02] LABS: HEMATOCRIT 32.2 % (42.0-52.0); HEMOGLOBIN 10.7 g/dl (13.5-17.5); MEAN CORPUSCULAR HEMOGLOBIN 26.8 pg (27.0-33.0); MEAN CORPUSCULAR HGB CONC 33.2 g/dl (32.0-36.5); MEAN CORPUSCULAR VOLUME 80.7 fl (80.0-96.0); PLATELET COUNT, AUTOMATED 174 10^3/uL (150-450); RED BLOOD COUNT 3.99 10^6/uL (4.30-6.10); WHITE BLOOD COUNT 15.6 10^3/uL (4.0-10.0)
[2021-01-12 05:27] LABS: BLOOD UREA NITROGEN 21 MG/DL (7-18); CALCIUM LEVEL 7.6 MG/DL (8.8-10.2); CARBON DIOXIDE LEVEL 27 MEQ/L (21-32); CHLORIDE LEVEL 102 MEQ/L (98-107); CREATININE FOR GFR 0.92 MG/DL (0.70-1.30); GLOMERULAR FILTRATION RATE > 60.0 (>49); GLUCOSE, FASTING 186 MG/DL (70-100); POTASSIUM SERUM 3.4 MEQ/L (3.5-5.1); SODIUM LEVEL 136 MEQ/L (136-145)
[2021-01-12 06:00] VITALS: BP 147/76
--- NOTE | 2021-01-12 09:11 | REP ---
INDICATION: CT head suggest acute CVA COMPARISON: None. TECHNIQUE: Real-time ultrasound evaluation and duplex Doppler interrogation of the extracranial carotid vasculature is performed. FINDINGS: There is mild plaquing and narrowing in both carotid bulbs extending into the internal and external carotid arteries. Luminal narrowing is less than 50%. There is no evidence of hemodynamically significant stenosis of either internal carotid artery. Normal flow velocities are seen. The vertebral arteries demonstrate normal direction of flow. RIGHT LEFT Peak systolic velocity ICA 67.7 cm/s 73.4 cm/s End diastolic velocity ICA 23.1 cm/s 25.1 cm/s Peak systolic velocity CCA 82.0 cm/s 80.9cm/s Peak systolic velocity ECA 49.2 cm/s 43.9 cm/s ICA/CCA ratio 0.63 0.91 IMPRESSION: Bilateral luminal narrowing of the internal carotid arteries less than 50%. No evidence of hemodynamically significant stenosis. <Electronically signed by Misha Gilbert > 01/12/21 0907
[2021-01-12] MEDS: APIXABAN 5 MG TAB (ELIQUIS) PO SCH ×2 (09:28→20:00)
[2021-01-12] MEDS: VENLAFAXINE **XR** 75MG CAPSULE PO SCH (09:28)
[2021-01-12] MEDS: MULTIVITAMINS/MINERALS THERAP 1 TAB PO SCH (09:28)
[2021-01-12] MEDS: buPROPion 75 MG TAB PO SCH ×2 (09:29→20:00)
[2021-01-12] MEDS: MAGNESIUM OXIDE 400MG TAB (MAG-OX) PO SCH ×2 (09:29→20:00)
[2021-01-12] MEDS: FERROUS SULFATE 325MG TAB PO SCH (09:29)
[2021-01-12] MEDS: METOPROLOL TART 50 MG TAB PO SCH ×2 (09:29→20:01)
[2021-01-12] MEDS: HumaLOG INSULIN (NovoLOG) PER UNIT SC SCH ×4 (09:30→21:00)
[2021-01-12] MEDS: NS 1,000 ML IV SCH ×2 (09:31→15:58)
[2021-01-12] MEDS ORDERED: POTASSIUM CHLORIDE 10MEQ SR TABLET PO ONE (10:15)
[2021-01-12] MEDS: LevoFLOXacin 500 MG TABLET PO SCH (12:44)
[2021-01-12 14:00] VITALS: BP 126/82
--- NOTE | 2021-01-12 14:08 | IPNPDOC ---
Subjective Date Seen The patient was seen on 01/12/21. Subjective Chief Complaint/HPI Mr. Walls is a 70-year-old male with renal cell carcinoma and tonsillar cancer who is here for nausea, poor oral intake, and generalized weakness. Yesterday, patient had a CT head which suggested acute versus chronic CVA. MRI was obtained and there was no acute stroke. It is consistent with an area of old ischemic change. This morning, he denies any chest pain or dyspnea. He is eating a little better. He still feels weak. Objective Physical Examination General Exam: Positive: Alert, Cooperative Eye Exam: Negative: Sclera icteric ENT Exam: Positive: Other ENT (Oral mucosa dry) Neck Exam: Positive: Supple Chest Exam: Positive: Clear to auscultation Heart Exam: Positive: Tachycardic Abdomen Exam: Positive: Normal bowel sounds, Soft; Negative: Tenderness Extremity Exam: Positive: Edema Neuro Exam: Positive: Other (Left-sided facial) Psych Exam: Positive: Mental status NL, Mood NL Assessment /Plan Assessment Mr. Walls is a 70-year-old male with renal cell carcinoma and tonsillar cancer who is here for nausea, poor oral intake, and generalized weakness. This may be an adverse reaction to starting new chemotherapy versus CVA. Patient tells me he has an appetite, but did not have any energy to make himself food. Otherwise patient appears clinically dry. We will give patient IV fluids and omeprazole. Since patient has an appetite, will try a carbohydrate consistent diet. Will order physical therapy for patient's generalized weakness. Physical therapy saw patient and recommending 1 or 2 more sessions Plan/VTE VTE Prophylaxis Ordered?: Yes Plan 1. Generalized weakness/failure to thrive Patient has not been able to get out of bed for 3 days May be secondary to new chemotherapy versus dehydration from diarrhea. Ruled out acute CVA Supportive care with IV fluids and carbohydrate consistent diet PT ordered to evaluate ambulation and if patient will need rehab 2. Shigella/enteroinvasive E. coli GI panel positive for Shigella/enteroinvasive E. coli Spoke with lab, stool culture will be sent out. Requested stool culture as other culture. Needs stool culture for sensitivities of Shigella Until sensitivities return, will empirically treat with levofloxacin 3. Nausea Secondary to chemotherapy Food does not alter nausea We will do a trial of carbohydrate consistent diet Start Protonix 4. Left facial droop Patient has noticed this for the past 3 days MRI negative for acute stroke 5. Atrial fibrillation on Eliquis Continue metoprolol for rate control Continue Eliquis for anticoagulation 6. Insulin-dependent diabetes mellitus Sliding scale insulin We will reduce basal insulin as patient will be on a controlled diet 7. Hyperlipidemia Continue atorvastatin 8. Chronic pain Continue Percocet 9. Anxiety/depression Continue Effexor and bupropion 10. DVT prophylaxis Patient is on Eliquis Disposition: Physical therapy recommending 1-2 more sessions VS, I&O, 24H, Fishbone Vital Signs/I&O Vital Signs Date Time Temp Pulse Resp B/P (MAP) Pulse Ox O2 Delivery O2 Flow Rate FiO2 01/12/21 09:29 94 145/79 01/12/21 09:00 2.0 01/12/21 06:00 97.8 18 92 Nasal Cannula I&O- Last 24 Hours up to 6 AM 01/12/21 05:59 Intake Total 2690 ml Output Total 250 ml Balance 2440 ml Laboratory Data 24H LABS Laboratory Tests 2 01/11/21 17:13: Bedside Glucose (Misc Panel) 177H 01/11/21 22:36: Bedside Glucose (Misc Panel) 170H 01/12/21 04:28: Nucleated Red Blood Cells % (auto) 0.0, Anion Gap 7L, Glomerular Filtration Rate > 60.0, Calcium Level 7.6L 01/12/21 12:30: Bedside Glucose (Misc Panel) 197H CBC/BMP Laboratory Tests 01/12/21 04:28 Microbiology Microbiology 01/12/21 Gastrointestinal Tract Panel (PCR) - Final, Complete Shigella/Enteroinvasive E.coli SHAYNA VOGT DO Jan 12, 2021 14:08
[2021-01-12] MEDS ORDERED: METOPROLOL TART 25 MG TABLET PO STA (15:46)
[2021-01-12] MEDS ORDERED: METOPROLOL 5 MG/5 ML VIAL IV PRN (15:50)
[2021-01-12 17:41] LABS: BLOOD UREA NITROGEN 19 MG/DL (7-18); CALCIUM LEVEL 7.4 MG/DL (8.8-10.2); CARBON DIOXIDE LEVEL 25 MEQ/L (21-32); CHLORIDE LEVEL 104 MEQ/L (98-107); CREATININE FOR GFR 0.98 MG/DL (0.70-1.30); GLOMERULAR FILTRATION RATE > 60.0 (>49); GLUCOSE, FASTING 238 MG/DL (70-100); POTASSIUM SERUM 3.7 MEQ/L (3.5-5.1); SODIUM LEVEL 137 MEQ/L (136-145)
[2021-01-12 18:09] LABS: TROPONIN I < 0.02 NG/ML (< 0.10)
[2021-01-12] MEDS: ATORVASTATIN 20 MG TAB PO SCH (20:00)
[2021-01-12] MEDS: PANTOPRAZOLE 40MG TAB (PROTONIX) PO SCH (20:00)
[2021-01-12] MEDS: TAMSULOSIN 0.4 MG CAP PO SCH (20:00)
[2021-01-12] MEDS: NYSTATIN 100,000 UNITS/GM TOPICAL PWD 15 GM TOP SCH (20:00)
--- NOTE | 2021-01-12 20:00 | ECGEPIP ---
[facility] - ED Test Date: 2021-01-11 Pat Name: ANDREW KELLY Department: Room: [facility] Gender: Male Full Roll Inspector: BILL : 1950 Requested By: Agustin Frankel Order Number: [id number] Reading MD: Sunshine Morrow Measurements Intervals [place] Rate: 105 P: 74 MT: 128 QRS: 35 QRSD: 102 T: 94 QT: 364 QTc: 481 Interpretive Statements Sinus tachycardia NSTTW abnormalities delayed r progression increased rate 03/07/20 Electronically Signed on 01-12-2021 19:59:48 EDT by Sunshine Morrow
[2021-01-12 21:00] VITALS: BP 153/80
[2021-01-12] MEDS: LEVEMIR (INSULIN DETEMIR) 1 UNITS/0.01ML SC SCH (23:33)
[2021-01-13] MEDS: LevoFLOXacin 500 MG TABLET PO SCH (05:38)
[2021-01-13 06:14] VITALS: BP 122/78
[2021-01-13 06:14] LABS: HEMOGLOBIN 10.6 g/dl (13.5-17.5); MEAN CORPUSCULAR HEMOGLOBIN 27.1 pg (27.0-33.0); MEAN CORPUSCULAR HGB CONC 33.1 g/dl (32.0-36.5); MEAN CORPUSCULAR VOLUME 81.8 fl (80.0-96.0); PLATELET COUNT, AUTOMATED 193 10^3/uL (150-450); RED BLOOD COUNT 3.91 10^6/uL (4.30-6.10)
[2021-01-13 06:41] LABS: BLOOD UREA NITROGEN 15 MG/DL (7-18); CALCIUM LEVEL 7.9 MG/DL (8.8-10.2); CARBON DIOXIDE LEVEL 28 MEQ/L (21-32); CHLORIDE LEVEL 105 MEQ/L (98-107); CREATININE FOR GFR 0.87 MG/DL (0.70-1.30); GLOMERULAR FILTRATION RATE > 60.0 (>49); GLUCOSE, FASTING 145 MG/DL (70-100); POTASSIUM SERUM 3.4 MEQ/L (3.5-5.1); SODIUM LEVEL 138 MEQ/L (136-145)
[2021-01-13] MEDS ORDERED: POTASSIUM CHLORIDE 10MEQ SR TABLET PO ONE (08:00)
[2021-01-13] MEDS: buPROPion 75 MG TAB PO SCH ×2 (10:01→21:51)
[2021-01-13] MEDS: VENLAFAXINE **XR** 75MG CAPSULE PO SCH (10:01)
[2021-01-13] MEDS: MULTIVITAMINS/MINERALS THERAP 1 TAB PO SCH (10:02)
[2021-01-13] MEDS: MAGNESIUM OXIDE 400MG TAB (MAG-OX) PO SCH ×2 (10:02→21:57)
[2021-01-13] MEDS: METOPROLOL TART 50 MG TAB PO SCH ×2 (10:02→21:56)
[2021-01-13] MEDS: FERROUS SULFATE 325MG TAB PO SCH (10:02)
[2021-01-13] MEDS: APIXABAN 5 MG TAB (ELIQUIS) PO SCH ×2 (10:03→21:51)
[2021-01-13] MEDS: NYSTATIN 100,000 UNITS/GM TOPICAL PWD 15 GM TOP SCH ×2 (10:03→21:52)
[2021-01-13] MEDS: HumaLOG INSULIN (NovoLOG) PER UNIT SC SCH ×4 (10:38→21:52)
--- NOTE | 2021-01-13 13:30 | IPNPDOC ---
Subjective Date Seen The patient was seen on 01/13/21. Subjective Chief Complaint/HPI Mr. Walls is a 70-year-old male with renal cell carcinoma and tonsillar cancer who is here for nausea, poor oral intake, and generalized weakness and found to have shigella/enteroinvasive E.coli. This morning, he denies any chest pain or dyspnea. His stool was sent out yesterday for stool culture. Patient's WBC continues to increase. Will order for blood cultures. Objective Physical Examination General Exam: Positive: Alert, Cooperative Eye Exam: Negative: Sclera icteric ENT Exam: Positive: Other ENT (Oral mucosa dry) Neck Exam: Positive: Supple Chest Exam: Positive: Clear to auscultation Heart Exam: Positive: Tachycardic Abdomen Exam: Positive: Normal bowel sounds, Soft; Negative: Tenderness Extremity Exam: Positive: Edema Neuro Exam: Positive: Other (Left-sided facial) Psych Exam: Positive: Mental status NL, Mood NL Assessment /Plan Assessment Mr. Walls is a 70-year-old male with renal cell carcinoma and tonsillar cancer who is here for nausea, poor oral intake, and generalized weakness. This may be an adverse reaction to starting new chemotherapy versus diarrhea 2/2 shigella/enteroinvasive E.coli. Patient tells me he has an appetite, but did not have any energy to make himself food. Otherwise patient appears clinically dry. We will give patient IV fluids and omeprazole. Will order physical therapy for patient's generalized weakness. Physical therapy saw patient and recommending 1 or 2 more sessions Since patient has shigella/enteroinvasive E.coli, I would recommend waiting for stool culture results to determine sensitivities. Also, would recommend monitoring leukocytosis. Plan/VTE VTE Prophylaxis Ordered?: Yes Plan 1. Generalized weakness/failure to thrive Patient has not been able to get out of bed for 3 days May be secondary to new chemotherapy versus dehydration from diarrhea. Ruled out acute CVA Supportive care with IV fluids and carbohydrate consistent diet 2. Shigella/enteroinvasive E. coli GI panel positive for Shigella/enteroinvasive E. coli Spoke with lab, stool culture will be sent out. Requested stool culture as other culture. Needs stool culture for sensitivities of Shigella Until sensitivities return, will empirically treat with levofloxacin -Levofloxacin day 2 3. Nausea Secondary to chemotherapy Food does not alter nausea We will do a trial of carbohydrate consistent diet Start Protonix 4. Left facial droop Patient has noticed this for the past 3 days MRI negative for acute stroke 5. Paroxysmal atrial fibrillation on Eliquis Continue metoprolol for rate control Continue Eliquis for anticoagulation 6. Insulin-dependent diabetes mellitus Sliding scale insulin We will reduce basal insulin as patient will be on a controlled diet 7. Hyperlipidemia Continue atorvastatin 8. Chronic pain Continue Percocet 9. Anxiety/depression Continue Effexor and bupropion 10. Morbid obesity -BMI 40.2 -Complicates care 11. DVT prophylaxis Patient is on Eliquis Disposition: Physical therapy recommending 1-2 more sessions. Would recommend waiting for stool cultures for Shigella/enteroinvasive E.coli sensitivities. Monitor WBC. VS, I&O, 24H, Fishbone Vital Signs/I&O Vital Signs Date Time Temp Pulse Resp B/P (MAP) Pulse Ox O2 Delivery O2 Flow Rate FiO2 01/13/21 10:02 79 146/77 01/13/21 06:14 96.6 18 94 Nasal Cannula 2.0 I&O- Last 24 Hours up to 6 AM 01/13/21 06:00 Intake Total 2090 ml Output Total 1025 ml Balance 1065 ml Laboratory Data 24H LABS Laboratory Tests 2 01/12/21 16:50: Anion Gap 8, Glomerular Filtration Rate > 60.0, Calcium Level 7.4L, Magnesium Level 2.0, Troponin I < 0.02, Thyroid Stimulating Hormone (TSH) 1.100 01/12/21 17:20: Bedside Glucose (Misc Panel) 201H 01/12/21 20:23: Bedside Glucose (Misc Panel) 99 01/13/21 05:49: Nucleated Red Blood Cells % (auto) 0.1H 01/13/21 05:50: Anion Gap 5L, Glomerular Filtration Rate > 60.0, Calcium Level 7.9L, Magnesium Level 2.0 01/13/21 08:16: Erythrocyte Sedimentation Rate 70H, C-Reactive Protein, Quantitative 5.96H CBC/BMP Laboratory Tests 01/12/21 16:50 01/13/21 05:49 01/13/21 05:50 Microbiology Microbiology 01/13/21 Blood Culture, Received Pending 01/13/21 Blood Culture, Received Pending 01/12/21 Salmonella/Shigella Screen, Received Pending 01/12/21 Stool Culture Result 1 (OPAL), Received Pending 01/12/21 Campylobacter Culture, Received Pending 01/12/21 Miscellaneous Micro Reference Test, Received Pending 01/12/21 Escherichia coli Shiga Toxins EIA, Received Pending 01/12/21 Gastrointestinal Tract Panel (PCR) - Final, Complete Shigella/Enteroinvasive E.coli SHAYNA VOGT DO Jan 13, 2021 13:30
[2021-01-13 14:00] VITALS: BP 148/69
[2021-01-13] MEDS: TAMSULOSIN 0.4 MG CAP PO SCH (21:51)
[2021-01-13] MEDS: PANTOPRAZOLE 40MG TAB (PROTONIX) PO SCH (21:51)
[2021-01-13] MEDS: ATORVASTATIN 20 MG TAB PO SCH (21:51)
[2021-01-13] MEDS: LEVEMIR (INSULIN DETEMIR) 1 UNITS/0.01ML SC SCH (21:53)
[2021-01-13 22:00] VITALS: BP 127/62
[2021-01-14] VITALS (8 sets, daily range): BP systolic 120–128; BP diastolic 58–68; O2SAT 84–94
[2021-01-14] MEDS: LevoFLOXacin 500 MG TABLET PO SCH (05:22)
[2021-01-14 06:38] LABS: HEMATOCRIT 31.1 % (42.0-52.0); HEMOGLOBIN 10.2 g/dl (13.5-17.5); MEAN CORPUSCULAR HGB CONC 32.8 g/dl (32.0-36.5); MEAN CORPUSCULAR VOLUME 82.3 fl (80.0-96.0); PLATELET COUNT, AUTOMATED 192 10^3/uL (150-450); RED BLOOD COUNT 3.78 10^6/uL (4.30-6.10); WHITE BLOOD COUNT 24.6 10^3/uL (4.0-10.0)
[2021-01-14 07:06] LABS: ERYTHROCYTE SEDIMENTATION RATE 81 mm/hr (0-20)
[2021-01-14 07:09] LABS: BLOOD UREA NITROGEN 12 MG/DL (7-18); C REACTIVE PROTEIN QUANTITATIV 4.02 MG/DL (0.00-0.30); CALCIUM LEVEL 7.8 MG/DL (8.8-10.2); CARBON DIOXIDE LEVEL 27 MEQ/L (21-32); CHLORIDE LEVEL 105 MEQ/L (98-107); GLOMERULAR FILTRATION RATE > 60.0 (>49); GLUCOSE, FASTING 173 MG/DL (70-100); POTASSIUM SERUM 3.5 MEQ/L (3.5-5.1); SODIUM LEVEL 139 MEQ/L (136-145)
--- NOTE | 2021-01-14 08:46 | ECGEPIP ---
[facility] Test Date: 2021-01-12 Pat Name: ANDREW KELLY Department: Room: [place] [address] Gender: Male Tape Editor: margaret : 1950 Requested By: SHAYNA Frankel Order Number: [id number] Reading MD: Luis Israel Measurements Intervals [place] Rate: 88 P: 84 VA: 124 QRS: 27 QRSD: 112 T: 86 QT: 414 QTc: 500 Interpretive Statements Normal sinus rhythm Incomplete left bundle branch block Nonspecific ST and T wave abnormality SIMILAR TO 01/11/2011 Electronically Signed on 01-14-2021 8:46:33 EDT by Luis Israel
[2021-01-14] MEDS: SODIUM CHLORIDE 0.9% NASAL GEL 15GM (AYR) SCH ×4 (09:00→21:11)
[2021-01-14] MEDS: APIXABAN 5 MG TAB (ELIQUIS) PO SCH ×2 (09:22→21:09)
[2021-01-14] MEDS: FERROUS SULFATE 325MG TAB PO SCH (09:22)
[2021-01-14] MEDS: HumaLOG INSULIN (NovoLOG) PER UNIT SC SCH ×4 (09:22→20:57)
[2021-01-14] MEDS: MAGNESIUM OXIDE 400MG TAB (MAG-OX) PO SCH ×2 (09:23→21:10)
[2021-01-14] MEDS: VENLAFAXINE **XR** 75MG CAPSULE PO SCH (09:23)
[2021-01-14] MEDS: METOPROLOL TART 50 MG TAB PO SCH ×2 (09:23→21:10)
[2021-01-14] MEDS: MULTIVITAMINS/MINERALS THERAP 1 TAB PO SCH (09:23)
[2021-01-14] MEDS: NYSTATIN 100,000 UNITS/GM TOPICAL PWD 15 GM TOP SCH ×2 (09:24→21:10)
[2021-01-14] MEDS: buPROPion 75 MG TAB PO SCH ×2 (09:26→21:09)
--- NOTE | 2021-01-14 13:28 | IPN ---
"PROGRESS NOTE DATE: 01/14/2021 SUBJECTIVE: The patient complains of generalized weakness, a little bit of lightheadedness when he sat up from supine position. No near syncope. The patient has not been ambulating at all. He denies any fever or chills. He says he has been having loose bowel movements, could not tell whether this was bloody, documented on 01/12/2021 with four bowel movements, yesterday was zero. E. Coli and Shigella noted on GI panel on admission on 01/12. The patient complains of slight thirst without nausea, vomiting or abdominal pain, flank pain or chills, fever overnight. OBJECTIVE: VITAL SIGNS: Temperature 96.8, pulse 71, respiratory rate 20, blood pressure 120/58, 94% 2 liters nasal cannula. GENERAL: Awake, alert, oriented, answering questions appropriately. No distress. HEENT: Anicteric, no jaundice. Dry mucous membranes. Chapped lips. NECK: Supple, no JVD, tracheal deviation or carotid bruits. LUNGS: Clear to auscultation, no wheezing or rales. HEART: S1, S2, sinus tachycardia. ABDOMEN: Soft, nontender, non-distended, positive bowel sounds. EXTREMITIES: Positive edema. NEUROLOGIC: Left-sided facial droop. Laboratory data, microbiology, imaging studies have been reviewed. ASSESSMENT/PLAN: 70-year-old male with history of renal cell CA, tonsillar CA, admitted for failure to thrive, generalized weakness, nausea, vomiting, decreased oral intake and found to have Shigella enteroinvasive E. coli diarrhea and chemotherapy-induced diarrhea. IMPRESSION: 1. Failure to thrive with generalized weakness and persistent diarrhea: The patient has had supportive care, status post IV fluids, tolerating his diet, antiemetics as needed. PT/OT consulted. Activity as tolerated with fall precautions. 2. Diarrhea secondary to Shigella enteroinvasive E. coli. Supportive care with electrolyte monitoring, supplement electrolytes as needed. IV fluids and currently on day #3 of Levaquin. 3. Chemotherapy-induced nausea, on PPI and antiemetics as needed. 4. |Left facial droop. MRI negative for acute CVA. 5. Paroxysmal Afib on chronic Eliquis, rate controlled on Metoprolol. 6. Insulin-dependent diabetes, on consistent carbohydrate, insulin sliding scale and basal insulin with Levemir. 7. Hyperlipidemia, on Atorvastatin. 8. Chronic pain on Percocet. 9. Anxiety and depression, on Effexor and Bupropion. 10. Obesity BMI 40.2 complicating care. 11. DVT prophylaxis, on chronic Eliquis. DISPOSITION: The patient is followed by PT/OT and one to two more sessions. IVORY"
[2021-01-14] MEDS: PANTOPRAZOLE 40MG TAB (PROTONIX) PO SCH (21:09)
[2021-01-14] MEDS: TAMSULOSIN 0.4 MG CAP PO SCH (21:09)
[2021-01-14] MEDS: LEVEMIR (INSULIN DETEMIR) 1 UNITS/0.01ML SC SCH (21:09)
[2021-01-14] MEDS: ATORVASTATIN 20 MG TAB PO SCH (21:10)
[2021-01-15] MEDS: LevoFLOXacin 500 MG TABLET PO SCH (05:39)
[2021-01-15 06:00] VITALS: BP 131/67
[2021-01-15 06:20] LABS: HEMATOCRIT 29.9 % (42.0-52.0); HEMOGLOBIN 9.9 g/dl (13.5-17.5); MEAN CORPUSCULAR HEMOGLOBIN 27.1 pg (27.0-33.0); MEAN CORPUSCULAR HGB CONC 33.1 g/dl (32.0-36.5); MEAN CORPUSCULAR VOLUME 81.9 fl (80.0-96.0); PLATELET COUNT, AUTOMATED 179 10^3/uL (150-450); RED BLOOD COUNT 3.65 10^6/uL (4.30-6.10); WHITE BLOOD COUNT 23.1 10^3/uL (4.0-10.0)
[2021-01-15 06:48] LABS: BLOOD UREA NITROGEN 10 MG/DL (7-18); CALCIUM LEVEL 7.5 MG/DL (8.8-10.2); CARBON DIOXIDE LEVEL 25 MEQ/L (21-32); CHLORIDE LEVEL 104 MEQ/L (98-107); CREATININE FOR GFR 0.89 MG/DL (0.70-1.30); GLOMERULAR FILTRATION RATE > 60.0 (>49); GLUCOSE, FASTING 208 MG/DL (70-100); POTASSIUM SERUM 3.3 MEQ/L (3.5-5.1); SODIUM LEVEL 138 MEQ/L (136-145)
[2021-01-15] MEDS: SODIUM CHLORIDE 0.9% NASAL GEL 15GM (AYR) SCH ×4 (08:09→21:00)
[2021-01-15] MEDS: MULTIVITAMINS/MINERALS THERAP 1 TAB PO SCH (08:11)
[2021-01-15] MEDS: MAGNESIUM OXIDE 400MG TAB (MAG-OX) PO SCH ×2 (08:11→20:59)
[2021-01-15] MEDS: APIXABAN 5 MG TAB (ELIQUIS) PO SCH ×2 (08:11→21:01)
[2021-01-15] MEDS: FERROUS SULFATE 325MG TAB PO SCH (08:11)
[2021-01-15] MEDS: buPROPion 75 MG TAB PO SCH ×2 (08:11→21:01)
[2021-01-15] MEDS: NYSTATIN 100,000 UNITS/GM TOPICAL PWD 15 GM TOP SCH ×2 (08:12→21:00)
[2021-01-15] MEDS: VENLAFAXINE **XR** 75MG CAPSULE PO SCH (08:12)
[2021-01-15] MEDS: HumaLOG INSULIN (NovoLOG) PER UNIT SC SCH ×4 (08:13→20:50)
[2021-01-15] MEDS: METOPROLOL TART 50 MG TAB PO SCH ×2 (08:15→20:59)
[2021-01-15 09:00] VITALS: O2SAT 93
[2021-01-15] MEDS ORDERED: CEPACOL LOZENGE PO ONE (09:45)
[2021-01-15] MEDS ORDERED: VANCOMYCIN HCL 1,000 MG, VIAL MATE ADAPTER 1 EACH in NS 250 ML IV ONE ×2 (10:00→11:00)
[2021-01-15 10:06] LABS: C REACTIVE PROTEIN QUANTITATIV 2.41 MG/DL (0.00-0.30)
[2021-01-15 10:53] LABS: ERYTHROCYTE SEDIMENTATION RATE 94 mm/hr (0-20)
[2021-01-15] MEDS ORDERED: POTASSIUM CHLORIDE 10MEQ SR TABLET PO ONE (12:30)
[2021-01-15 14:00] VITALS: BP 131/64
--- NOTE | 2021-01-15 15:45 | IPN ---
PROGRESS NOTE DATE: 01/15/2021 SUBJECTIVE: Yesterday, patient's microbiology was positive for gram-positive cocci in clusters in one of two sets of blood cultures dated 01/11/2021. Patient otherwise remained afebrile without any complaint of chills. Diarrhea has subsided and he now has formed stools. No nausea, vomiting, abdominal pain. No joint pain. No other new complaints aside from generalized weakness. OBJECTIVE: VITAL SIGNS: Temperature 97.3, pulse 74, respiratory rate 17, blood pressure 131/67, 98% on 1 liter nasal cannula. GENERAL: Patient is awake, alert, oriented to person, place and time, answering questions appropriately, in no distress. HEENT: No jugular venous distention (JVD), thyromegaly or cervical lymphadenopathy. No tracheal deviation or use of respiratory accessory muscles. Anicteric. No jaundice. LUNGS: Clear to auscultation. No wheezing, rales or rhonchi bilaterally. HEART: S1, S2. Sinus rhythm. ABDOMEN: Soft, nontender, nondistended. Positive bowel sounds. EXTREMITIES: No cyanosis or clubbing. Chronic edema. LABORATORY DATA: Reviewed. Notable for white count of 23,000. Sedimentation rate of 94. Potassium of 3.3, calcium 7.5. Procalcitonin is still pending. ASSESSMENT: This is a 70-year-old male admitted on 01/11/2021 with complaints of generalized weakness, nausea, vomiting, decrease in oral intake, with history of renal cancer, tonsillar cancer and a port, found to have Shigella and enteroinvasive Escherichia (E) coli and chemotherapy-induced diarrhea. Blood culture grew gram-positive cocci. Rule out outlying sepsis with persistently elevated leukocytosis. IMPRESSION: 1. Failure to thrive with generalized weakness, persistent diarrhea secondary to Shigella and enteroinvasive Escherichia (E) coli. Patient now has formed stool status post treatment with Levaquin for three days and status post intravenous (IV) fluids. Physical therapy (PT), occupational therapy (OT) and activity as tolerated with fall precautions and assisted ambulation. 2. Diarrhea due to Shigella and enteroinvasive Escherichia (E) coli. Supportive care. Currently day #4 of Levaquin. Supplement electrolytes as needed. 3. Chemotherapy-induced nausea. On proton pump inhibitor (PPI), antiemetics. 4. Left facial droop. MRI is negative for acute cerebrovascular accident (CVA). 5. Paroxysmal atrial fibrillation. On chronic Eliquis. Rate-controlled on metoprolol. 6. Insulin-dependent type 2 diabetes. On insulin sliding scale, basal insulin with Levemir, consistent carbohydrate diet. 7. Hyperlipidemia. On chronic atorvastatin. 8. Blood culture positive for gram-positive cocci. Rule out contamination versus acute line sepsis. Patient does have a port. Obtain two more sets of blood cultures and start vancomycin to be renally dosed by pharmacy. 9. Obesity. Body mass index (BMI) OF 40.2, complicating care. 10. Anxiety and depression. On Effexor, bupropion. 11. Deep venous thrombosis (DVT) prophylaxis. On chronic Eliquis.
--- NOTE | 2021-01-15 15:46 | ECHO ---
ECHOCARDIOGRAM DATE OF PROCEDURE: 01/15/2021 Age: 70 Gender: Height: 173 cm Weight: 117 kg REFERRING PHYSICIAN: Dr. Chiquita Hamlin INDICATION: Bacteremia. 2D MEASUREMENTS: IVS 1.3 cm LVPW 1.3 cm LV 5.1 cm Aortic root 4.3 cm LA 3.0 cm DOPPLER MEASUREMENTS: Peak velocity across the aortic valve 1.4 m/s Peak velocity across the LVOT 0.5 m/s Peak gradient across the aortic valve 8 mmHg Mitral E 1.4 Maximum tricuspid valve velocity 3.3 m/s 2D COMMENTS: 1. Normal left ventricular size with mildly increased left ventricular wall thickness and a low normal global left ventricular systolic function. The estimated left ventricular systolic ejection fraction is 50%-55%. 2. Subsequently, the left atrium appeared to be mildly enlarged. Normal right atrium and right ventricle. 3. The atrial septum appeared to be normal without evidence of defect or shunt. 4. Mildly to moderately dilated aortic root at 4.3 cm. 5. No pericardial effusion seen. 6. The aortic valve appeared to be mildly calcified and bicuspid in nature without any significant obstruction. Mildly calcified mitral annulus with normal mitral valve leaflet motion. Normal tricuspid valve and pulmonary valve. The proximal pulmonary artery branches appeared to be normal size in limited views. 7. The inferior vena cava was visualized. DOPPLER: It detects trace aortic regurgitation. Mild mitral regurgitation. Moderate tricuspid regurgitation and moderate pulmonic regurgitation. The calculated pulmonary artery systolic pressure varies between 40-50 mmHg. Assessment of the left ventricular diastolic function was limited. IMPRESSION: 1. Low normal global left ventricular systolic function with mild concentric left ventricular hypertrophy. Assessment of the left ventricular diastolic function was limited. 2. Bicuspid aortic valve with mild sclerosis and no significant stenosis. Trace aortic regurgitation detected in limited views. 3. Moderate tricuspid regurgitation with moderate pulmonary hypertension. 4. Moderate pulmonic regurgitation. 5. No vegetation seen, to consider a transesophageal echocardiogram for further evaluation if there is high clinical suspicion for endocarditis.
[2021-01-15] MEDS: VANCOMYCIN HCL 1,000 MG, VIAL MATE ADAPTER 1 EACH in NS 250 ML IV SCH (18:47)
[2021-01-15] MEDS: CEPACOL LOZENGE PO PRN (20:58)
[2021-01-15] MEDS: TAMSULOSIN 0.4 MG CAP PO SCH (20:58)
[2021-01-15] MEDS: ATORVASTATIN 20 MG TAB PO SCH (20:58)
[2021-01-15] MEDS: PANTOPRAZOLE 40MG TAB (PROTONIX) PO SCH (20:59)
[2021-01-15] MEDS: LEVEMIR (INSULIN DETEMIR) 1 UNITS/0.01ML SC SCH (21:00)
[2021-01-15 22:00] VITALS: BP 130/64
[2021-01-16] MEDS: VANCOMYCIN HCL 1,000 MG, VIAL MATE ADAPTER 1 EACH in NS 250 ML IV SCH ×2 (02:47→10:40)
[2021-01-16] MEDS: LevoFLOXacin 500 MG TABLET PO SCH (05:19)
[2021-01-16 06:00] VITALS: BP 148/74
[2021-01-16 06:18] LABS: HEMATOCRIT 30.9 % (42.0-52.0); HEMOGLOBIN 10.1 g/dl (13.5-17.5); MEAN CORPUSCULAR HEMOGLOBIN 26.9 pg (27.0-33.0); MEAN CORPUSCULAR HGB CONC 32.7 g/dl (32.0-36.5); MEAN CORPUSCULAR VOLUME 82.4 fl (80.0-96.0); PLATELET COUNT, AUTOMATED 197 10^3/uL (150-450); RED BLOOD COUNT 3.75 10^6/uL (4.30-6.10); WHITE BLOOD COUNT 22.7 10^3/uL (4.0-10.0)
[2021-01-16 06:43] LABS: BLOOD UREA NITROGEN 10 MG/DL (7-18); CALCIUM LEVEL 7.9 MG/DL (8.8-10.2); CARBON DIOXIDE LEVEL 28 MEQ/L (21-32); CHLORIDE LEVEL 105 MEQ/L (98-107); GLOMERULAR FILTRATION RATE > 60.0 (>49); GLUCOSE, FASTING 158 MG/DL (70-100); POTASSIUM SERUM 3.8 MEQ/L (3.5-5.1); SODIUM LEVEL 140 MEQ/L (136-145)
[2021-01-16] MEDS: HumaLOG INSULIN (NovoLOG) PER UNIT SC SCH ×4 (07:30→21:00)
[2021-01-16] MEDS: VENLAFAXINE **XR** 75MG CAPSULE PO SCH (09:05)
[2021-01-16] MEDS: APIXABAN 5 MG TAB (ELIQUIS) PO SCH ×2 (09:05→22:17)
[2021-01-16] MEDS: buPROPion 75 MG TAB PO SCH ×2 (09:05→22:15)
[2021-01-16] MEDS: MULTIVITAMINS/MINERALS THERAP 1 TAB PO SCH (09:05)
[2021-01-16] MEDS: FERROUS SULFATE 325MG TAB PO SCH (09:05)
[2021-01-16] MEDS: MAGNESIUM OXIDE 400MG TAB (MAG-OX) PO SCH ×2 (09:05→22:17)
[2021-01-16] MEDS: NYSTATIN 100,000 UNITS/GM TOPICAL PWD 15 GM TOP SCH ×2 (09:07→22:18)
[2021-01-16] MEDS: METOPROLOL TART 50 MG TAB PO SCH ×2 (09:07→22:16)
[2021-01-16] MEDS: SODIUM CHLORIDE 0.9% NASAL GEL 15GM (AYR) SCH ×4 (09:08→22:18)
[2021-01-16 09:55] LABS: C REACTIVE PROTEIN QUANTITATIV 1.79 MG/DL (0.00-0.30)
[2021-01-16] MEDS: GASTROGRAFIN SOLUTION 30ML PO SCH ×2 (10:40→10:41)
[2021-01-16 10:50] LABS: ERYTHROCYTE SEDIMENTATION RATE 85 mm/hr (0-20)
[2021-01-16] MEDS ORDERED: ISOVUE-370 76% 100ML VIAL As Ordered ONE (11:11)
--- NOTE | 2021-01-16 11:42 | IPNPDOC ---
Date Seen The patient was seen on 01/16/21. Progress Note SUBJECTIVE: Patient has been having formed stools without nausea vomiting or fever he denies chills but admits to cough productive of white sputum white count is still elevated but has not been on Decadron and denied any recent Neulasta or Neupogen. OBJECTIVE: VITAL SIGNS: See below GENERAL: Sitting on a chair at the bedside no distress. HEENT: No jugular venous distention (JVD), thyromegaly or cervical lymphadenopathy. No tracheal deviation or use of respiratory accessory muscles. Anicteric. No jaundice. LUNGS: Diminished no wheezing, rales or rhonchi bilaterally. HEART: S1, S2. Sinus rhythm. ABDOMEN: Soft, nontender, nondistended. Positive bowel sounds. EXTREMITIES: No cyanosis or clubbing. Chronic edema. LABORATORY DATA: Microbiology imaging studies please see the chart ASSESSMENT: This is a 70-year-old male admitted on 01/11/2021 with complaints of generalized weakness, nausea, vomiting, decrease in oral intake, with history of renal cancer, tonsillar cancer and a port, found to have Shigella and enteroinvasive Escherichia (E) coli and chemotherapy-induced diarrhea. Blood culture grew gram-positive cocci. Rule out outlying sepsis with persistently elevated leukocytosis. IMPRESSION: 1. Failure to thrive with generalized weakness, persistent diarrhea secondary to Shigella and enteroinvasive Escherichia (E) coli. Patient now has formed stool status post treatment with Levaquin which has been discontinued and status post intravenous (IV) fluids. Physical therapy (PT), occupational therapy (OT) and activity as tolerated with fall precautions and assisted ambulation. 2. Diarrhea due to Shigella and enteroinvasive Escherichia (E) coli. Supportive care. Completed Levaquin. Supplement electrolytes as needed. 3. Chemotherapy-induced nausea. On proton pump inhibitor (PPI), antiemetics. 4. Left facial droop. MRI is negative for acute cerebrovascular accident (CVA). 5. Paroxysmal atrial fibrillation. On chronic Eliquis. Rate-controlled on metoprolol. 6. Insulin-dependent type 2 diabetes. On insulin sliding scale, basal insulin with Levemir, consistent carbohydrate diet. 7. Hyperlipidemia. On chronic atorvastatin. 8. Contaminated blood culture with staph warneri Status post vancomycin which has been discontinued 9. Obesity. Body mass index (BMI) OF 40.2, complicating care. 10. Anxiety and depression. On Effexor, bupropion. 11. Leukocytosis most likely reactive with initial bandemia. Completed treatment for Shigella and E. coli Obtain CT chest abdomen pelvis monitor for worsening procalcitonin sed rate and CRP Vancomycin discontinued due to contaminated blood culture with staph warneri. Deep venous thrombosis (DVT) prophylaxis. On chronic Eliquis. Disposition: ARU consulted VS, I&O, 24H, Fishbone Vital Signs/I&O Vital Signs Date Time Temp Pulse Resp B/P (MAP) Pulse Ox O2 Delivery O2 Flow Rate FiO2 01/16/21 09:07 87 133/72 01/16/21 06:00 97.0 16 87 Nasal Cannula 1.0 I&O- Last 24 Hours up to 6 AM 01/16/21 05:59 Intake Total 3310 ml Output Total 1550 ml Balance 1760 ml Laboratory Data 24H LABS Laboratory Tests 2 01/15/21 16:32: Bedside Glucose (Misc Panel) 221H 01/15/21 20:22: Bedside Glucose (Misc Panel) 187H 01/16/21 05:28: Nucleated Red Blood Cells % (auto) 0.1H, Erythrocyte Sedimentation Rate 85H, Anion Gap 7L, Glomerular Filtration Rate > 60.0, Calcium Level 7.9L, C-Reactive Protein, Quantitative 1.79H 01/16/21 09:07: Vancomycin Level Trough 18.6 01/16/21 11:37: Bedside Glucose (Misc Panel) 192H CBC/BMP Laboratory Tests 01/16/21 05:28 Microbiology Microbiology 01/16/21 Blood Culture, Received Pending 01/16/21 Blood Culture, Received Pending 01/13/21 Blood Culture - Preliminary, Resulted No Growth after 72 hours. All specime... 01/13/21 Blood Culture - Final, Complete Staphylococcus Warneri 01/12/21 Salmonella/Shigella Screen, Received Pending 01/12/21 Stool Culture Result 1 (OPAL), Received Pending 01/12/21 Campylobacter Culture, Received Pending 01/12/21 Miscellaneous Micro Reference Test, Received Pending 01/12/21 Escherichia coli Shiga Toxins EIA, Received Pending 01/12/21 Gastrointestinal Tract Panel (PCR) - Final, Complete Shigella/Enteroinvasive E.coli LOLI ROTH MD Jan 16, 2021 11:42
--- NOTE | 2021-01-16 13:28 | REP ---
INDICATION: wbc23 sepsis COMPARISON: Multiple the latest 09/12/2020 a contrast-enhanced exam TECHNIQUE: Standard helical technique without intravenous contrast administration. This causes exam limitations. FINDINGS: There is mediastinal adenopathy which has developed since the prior exam. Borderline to mildly enlarged hilar lymph nodes cannot be ruled out since no intravenous contrast was administered. There is a small right pleural effusion which is essentially unchanged. There is no significant change in appearance of the imaged upper abdomen or imaged osseous structures. Evaluation of the lung avalos shows significant respiratory motion artifact throughout the examination worse at the lung bases. Repeat scanning through the lung bases only was obtained. There is evidence of newly developed patchy opacities and reticulonodular densities throughout the lung avalos with lung base predominance and difficult to evaluate due to the artifact. In the right lower lobe there is a newly developed area of consolidation which is approximately 7.1 by 1.7 by 3 cm in size. IMPRESSION: 1. The examination is limited by technique as described above. 2. New lung field opacities as described above suspicious for pneumonia. Certainly, lymphangitic carcinomatosis and or micro nodular metastasis cannot be ruled out by this limited exam. 3. There is newly developed significant mediastinal adenopathy. 4. There is a new focal right lower lobe opacity possibly representing pneumonia and or subsegmental atelectatic change. Follow-up is suggested. 5. Other findings as described above. <Electronically signed by Vincent Santos > 01/16/21 [id number]
--- NOTE | 2021-01-16 13:33 | REP ---
INDICATION: wbc23 abd pain. COMPARISON: Multiple the latest 09/12/2020 a contrast-enhanced exam TECHNIQUE: Standard helical technique after the intravenous administration of 100 cc Isovue 370 and oral bowel preparatory contrast administration. FINDINGS: The liver, gallbladder, spleen, pancreas, adrenal glands, and kidneys are unchanged. Postop changes are again seen in the superior pole of the left kidney status quo. There is an unchanged cyst arising from the inferior pole of the left kidney. The abdominal aorta and para-regions are unchanged. No adenopathy has developed. There is no significant change in appearance of the bowel loops or the mesenteries. There is no evidence of a mass or adenopathy. There is no evidence of free fluid or free air. Bone window technique throughout the examination shows no significant change in appearance of the osseous structures. IMPRESSION: There is no evidence of acute disease or significant change compared to the prior exam with findings as described above. <Electronically signed by Vincent Santos > 01/16/21 [id number]
[2021-01-16 14:00] VITALS: BP 143/67
[2021-01-16 21:00] VITALS: BP 143/73
[2021-01-16] MEDS: TAMSULOSIN 0.4 MG CAP PO SCH (22:16)
[2021-01-16] MEDS: PANTOPRAZOLE 40MG TAB (PROTONIX) PO SCH (22:16)
[2021-01-16] MEDS: ATORVASTATIN 20 MG TAB PO SCH (22:16)
[2021-01-16] MEDS: LEVEMIR (INSULIN DETEMIR) 1 UNITS/0.01ML SC SCH (22:17)
[2021-01-16] MEDS: CEPACOL LOZENGE PO PRN (22:38)
[2021-01-17 00:26] VITALS: O2SAT 93
[2021-01-17 06:00] VITALS: BP 144/72
[2021-01-17] MEDS: HumaLOG INSULIN (NovoLOG) PER UNIT SC SCH ×4 (07:30→21:00)
[2021-01-17] MEDS ORDERED: VANCOMYCIN HCL 1,000 MG, VIAL MATE ADAPTER 1 EACH in NS 250 ML IV SCH (08:00)
--- NOTE | 2021-01-17 08:43 | IPNPDOC ---
Date Seen The patient was seen on 01/17/21. Progress Note SUBJECTIVE: c/o cough w thick white sputum. no fever or chills. ct chest: consolidation. no diarrhea. ambulating well. no other c/o no n/v. tolerating his diet OBJECTIVE: VITAL SIGNS: See below GENERAL: in bed at 45 degree elevation HEENT: No jugular venous distention (JVD), thyromegaly or cervical lymphadenopathy. No tracheal deviation or use of respiratory accessory muscles. Anicteric. No jaundice. LUNGS: Diminished no wheezing, rales or rhonchi bilaterally. HEART: S1, S2. Sinus rhythm. ABDOMEN: Soft, nontender, nondistended. Positive bowel sounds. EXTREMITIES: No cyanosis or clubbing. Chronic edema. LABORATORY DATA: Microbiology imaging studies please see the chart ASSESSMENT: This is a 70-year-old male admitted on 01/11/2021 with complaints of generalized weakness, nausea, vomiting, decrease in oral intake, with history of renal cancer, tonsillar cancer and a port, found to have Shigella and enteroinvasive Escherichia (E) coli and chemotherapy-induced diarrhea. Blood culture grew gram-positive cocci. Rule out outlying sepsis with persistently elevated leukocytosis. IMPRESSION: 1. Failure to thrive with generalized weakness, persistent diarrhea secondary to Shigella and enteroinvasive Escherichia (E) coli. Patient now has formed stool status post treatment with Levaquin which has been discontinued and status post intravenous (IV) fluids. Physical therapy (PT), occupational therapy (OT) and activity as tolerated with fall precautions and assisted ambulation. 2. Diarrhea due to Shigella and enteroinvasive Escherichia (E) coli. resolved Supportive care. Completed Levaquin. Supplement electrolytes as needed. 3. Chemotherapy-induced nausea. On proton pump inhibitor (PPI), antiemetics. 4. Left facial droop. MRI is negative for acute cerebrovascular accident (CVA). 5. Paroxysmal atrial fibrillation. On chronic Eliquis. Rate-controlled on metoprolol. 6. Insulin-dependent type 2 diabetes. On insulin sliding scale, basal insulin with Levemir, consistent carbohydrate diet. 7. Hyperlipidemia. On chronic atorvastatin. 8. Contaminated blood culture with staph warneri Status post vancomycin which has been discontinued 9. Obesity. Body mass index (BMI) OF 40.2, complicating care. 10. Anxiety and depression. On Effexor, bupropion. 11. Leukocytosis most likely reactive with initial bandemia. Completed treatment for Shigella and E. coli Obtain CT chest abdomen pelvis monitor for worsening procalcitonin sed rate and CRP Vancomycin discontinued due to contaminated blood culture with staph warneri. 12. Right lower lobe pneumonia w incr wbc cough. check sputum cx, urine legionella and strep pneumo blood cx repeated negative. check mrsa screen dc vanco if negative. if wbc decreases in am, may dc home. iv ceftriaxone and doxy today. Deep venous thrombosis (DVT) prophylaxis. On chronic Eliquis. Disposition: dc in am if wbc decreased. VS, I&O, 24H, Fishbone Vital Signs/I&O Vital Signs Date Time Temp Pulse Resp B/P (MAP) Pulse Ox O2 Delivery O2 Flow Rate FiO2 01/17/21 06:00 97.4 71 17 144/72 (96) 94 Room Air 01/17/21 00:26 1.0 I&O- Last 24 Hours up to 6 AM 01/17/21 06:00 Intake Total 2040 ml Output Total 1900 ml Balance 140 ml Laboratory Data 24H LABS Laboratory Tests 2 01/16/21 09:07: Vancomycin Level Trough 18.6 01/16/21 11:37: Bedside Glucose (Misc Panel) 192H 01/16/21 16:39: Bedside Glucose (Misc Panel) 200H 01/16/21 21:03: Bedside Glucose (Misc Panel) 238H 01/17/21 08:29: Bedside Glucose (Misc Panel) 250H Microbiology Microbiology 01/16/21 Blood Culture - Preliminary, Resulted No growth after 24 hours . All specim... 01/16/21 Blood Culture - Preliminary, Resulted No growth after 24 hours . All specim... 01/13/21 Blood Culture - Preliminary, Resulted No Growth after 72 hours. All specime... 01/13/21 Blood Culture - Final, Complete Staphylococcus Warneri 01/12/21 Salmonella/Shigella Screen, Received Pending 01/12/21 Stool Culture Result 1 (OPAL), Received Pending 01/12/21 Campylobacter Culture, Received Pending 01/12/21 Miscellaneous Micro Reference Test, Received Pending 01/12/21 Escherichia coli Shiga Toxins EIA, Received Pending 01/12/21 Gastrointestinal Tract Panel (PCR) - Final, Complete Shigella/Enteroinvasive E.coli IRA,LOLI C. MD Jan 17, 2021 08:43
[2021-01-17] MEDS: SODIUM CHLORIDE 0.9% NASAL GEL 15GM (AYR) SCH ×4 (08:53→20:36)
[2021-01-17] MEDS: buPROPion 75 MG TAB PO SCH ×2 (08:53→20:35)
[2021-01-17] MEDS: MULTIVITAMINS/MINERALS THERAP 1 TAB PO SCH (08:53)
[2021-01-17] MEDS: FERROUS SULFATE 325MG TAB PO SCH (08:53)
[2021-01-17] MEDS: LACTOBACILLUS ACIDOPHILUS CAP (BACID) PO SCH ×4 (08:53→20:35)
[2021-01-17] MEDS: METOPROLOL TART 50 MG TAB PO SCH ×2 (08:54→20:36)
[2021-01-17] MEDS: APIXABAN 5 MG TAB (ELIQUIS) PO SCH ×2 (08:54→20:35)
[2021-01-17] MEDS: MAGNESIUM OXIDE 400MG TAB (MAG-OX) PO SCH ×2 (08:54→20:36)
[2021-01-17] MEDS: VENLAFAXINE **XR** 75MG CAPSULE PO SCH (08:54)
[2021-01-17] MEDS: DOXYCYCLINE HYCLATE 100 MG in D5W MINI-BAG PLUS 100 ML IV SCH ×2 (08:55→21:52)
[2021-01-17] MEDS: NYSTATIN 100,000 UNITS/GM TOPICAL PWD 15 GM TOP SCH ×2 (08:55→20:36)
[2021-01-17] MEDS: cefTRIAXone SOD 2 GM in D5W MINI-BAG PLUS 50 ML IV SCH (08:55)
[2021-01-17 09:57] LABS: BLOOD UREA NITROGEN 8 MG/DL (7-18); CREATININE FOR GFR 0.98 MG/DL (0.70-1.30); GLUCOSE, FASTING 244 MG/DL (70-100)
[2021-01-17 09:58] LABS: CALCIUM LEVEL 8.2 MG/DL (8.8-10.2); CARBON DIOXIDE LEVEL 27 MEQ/L (21-32); CHLORIDE LEVEL 104 MEQ/L (98-107); GLOMERULAR FILTRATION RATE > 60.0 (>49); SODIUM LEVEL 138 MEQ/L (136-145)
[2021-01-17 14:00] VITALS: BP 141/73
[2021-01-17] MEDS: ATORVASTATIN 20 MG TAB PO SCH (20:35)
[2021-01-17] MEDS: TAMSULOSIN 0.4 MG CAP PO SCH (20:35)
[2021-01-17] MEDS: CEPACOL LOZENGE PO PRN (20:36)
[2021-01-17] MEDS: PANTOPRAZOLE 40MG TAB (PROTONIX) PO SCH (20:36)
[2021-01-17] MEDS: LEVEMIR (INSULIN DETEMIR) 1 UNITS/0.01ML SC SCH (21:52)
[2021-01-17 22:00] VITALS: BP 154/75
[2021-01-18 01:02] VITALS: O2SAT 95
[2021-01-18 06:00] VITALS: BP 154/75
[2021-01-18] MEDS: HumaLOG INSULIN (NovoLOG) PER UNIT SC SCH ×2 (07:58→12:43)
[2021-01-18] MEDS: LACTOBACILLUS ACIDOPHILUS CAP (BACID) PO SCH ×2 (07:59→12:43)
[2021-01-18 08:00] VITALS: BP 149/74
[2021-01-18] MEDS: METOPROLOL TART 50 MG TAB PO SCH (08:00)
[2021-01-18] MEDS: FERROUS SULFATE 325MG TAB PO SCH (08:00)
[2021-01-18] MEDS: APIXABAN 5 MG TAB (ELIQUIS) PO SCH (08:00)
[2021-01-18] MEDS: MAGNESIUM OXIDE 400MG TAB (MAG-OX) PO SCH (08:00)
[2021-01-18] MEDS: buPROPion 75 MG TAB PO SCH (08:00)
[2021-01-18] MEDS: MULTIVITAMINS/MINERALS THERAP 1 TAB PO SCH (08:01)
[2021-01-18] MEDS: cefTRIAXone SOD 2 GM in D5W MINI-BAG PLUS 50 ML IV SCH (08:01)
[2021-01-18] MEDS: SODIUM CHLORIDE 0.9% NASAL GEL 15GM (AYR) SCH ×2 (08:02→12:53)
[2021-01-18] MEDS: NYSTATIN 100,000 UNITS/GM TOPICAL PWD 15 GM TOP SCH (08:03)
[2021-01-18] MEDS ORDERED: BACI1CAP PO (08:13)
[2021-01-18] MEDS ORDERED: DOXY-350 PO (08:13)
[2021-01-18] MEDS ORDERED: CEFD300C PO (08:13)
[2021-01-18] MEDS ORDERED: FLOM0.4C39 PO (08:27)
[2021-01-18 09:00] VITALS: O2SAT 96
[2021-01-18] MEDS ORDERED: PREVNAR 13 VACCINE SYRINGE IM ONE (09:00)
[2021-01-18] MEDS ORDERED: FLUBLOK(EGG FREE)(QUAD)INFLUENZA VACC 0.5ML SYRINGE 18YRS & OLDER IM ONE (09:00)
[2021-01-18 09:08] LABS: HEMATOCRIT 30.6 % (42.0-52.0); HEMOGLOBIN 10.2 g/dl (13.5-17.5); MEAN CORPUSCULAR HEMOGLOBIN 26.8 pg (27.0-33.0); MEAN CORPUSCULAR HGB CONC 33.3 g/dl (32.0-36.5); MEAN CORPUSCULAR VOLUME 80.5 fl (80.0-96.0); PLATELET COUNT, AUTOMATED 197 10^3/uL (150-450); WHITE BLOOD COUNT 19.3 10^3/uL (4.0-10.0)
[2021-01-18 09:33] LABS: ERYTHROCYTE SEDIMENTATION RATE 79 mm/hr (0-20)
[2021-01-18 10:11] LABS: ATYPICAL LYMPH 2 % (0-5); LYMPHOCYTES 10 % (16-44); METAMYELOCYTES 2 % (0-0); MYELOCYTES 1 % (0-0); NEUTROPHILS 78 % (28-66)
[2021-01-18 10:13] LABS: GIANT PLATELETS 1+; MICROCYTOSIS 1+; PLATELET ESTIMATE NORMAL (NORMAL)
[2021-01-18 10:14] LABS: POLYCHROMASIA 1+
[2021-01-18 10:23] LABS: MONOCYTES 5 % (0-5)
[2021-01-18] MEDS: VENLAFAXINE **XR** 75MG CAPSULE PO SCH (10:26)
[2021-01-18] MEDS: DOXYCYCLINE HYCLATE 100 MG in D5W MINI-BAG PLUS 100 ML IV SCH (10:27)
--- NOTE | 2021-01-18 10:35 | DS.PDOC ---
Discharge Summary General Date of Admission Jan 11, 2021 at 14:41 Date of Discharge January 18, 2021 Discharge Summary DISCHARGE DIAGNOSES: Shigella and enteroinvasive E. coli diarrhea Urine retention requiring Guillory catheter placement Right lower lobe pneumonia Reactive leukocytosis Chemotherapy-induced diarrhea History of head and neck cancer Failure to thrive due to nausea vomiting diarrhea Paroxysmal atrial fibrillation Left facial droop negative MRI of the brain for CVA Type 2 insulin-dependent diabetes Dyslipidemia Obesity BMI of 39.6 Contaminated blood culture Anxiety Depression DISCHARGE MEDICATIONS: See below DISCHARGE INSTRUCTIONS: Return to the emergency room if T-max of 100.4 or higher, persistent cough shortness of breath abdominal pain diarrhea. Primary care physician appointment within 5 days of hospital discharge PCP to refer to urology for cystoscopy regarding urine retention Medical oncology as previously scheduled HOSPITAL COURSE: 70-year-old male admitted on 01/11/2021 with complaints of generalized weakness, nausea, vomiting, decrease in oral intake, with history of renal cancer, tonsillar cancer and a port, found to have Shigella and enteroinvasive Escherichia (E) coli and chemotherapy-induced diarrhea. Blood culture grew gram-positive cocci. Rule out outlying sepsis with persistently elevated leukocytosis. 1. Failure to thrive with generalized weakness, persistent diarrhea secondary to Shigella and enteroinvasive Escherichia (E) coli. Patient now has formed stool status post treatment with Levaquin which has been discontinued and status post intravenous (IV) fluids. Physical therapy (PT), occupational therapy (OT) and activity as tolerated with fall precautions and assisted ambulation. 2. Diarrhea due to Shigella and enteroinvasive Escherichia (E) coli. resolved Supportive care. Completed Levaquin. Supplement electrolytes as needed. 3. Chemotherapy-induced nausea. On proton pump inhibitor (PPI), antiemetics. 4. Left facial droop. MRI is negative for acute cerebrovascular accident (CVA). 5. Paroxysmal atrial fibrillation. On chronic Eliquis. Rate-controlled on metoprolol. 6. Insulin-dependent type 2 diabetes. On insulin sliding scale, basal insulin with Levemir, consistent carbohydrate diet. 7. Hyperlipidemia. On chronic atorvastatin. 8. Contaminated blood culture with staph warneri Status post vancomycin which has been discontinued 9. Obesity. Body mass index (BMI) OF 40.2, complicating care. 10. Anxiety and depression. On Effexor, bupropion. 11. Leukocytosis most likely reactive with initial bandemia. Completed treatment for Shigella and E. coli Obtain CT chest abdomen pelvis monitor for worsening procalcitonin sed rate and CRP Vancomycin discontinued due to contaminated blood culture with staph warneri. 12. Right lower lobe pneumonia w incr wbc cough.. iv ceftriaxone and doxy day #2. MRSA screen is negative May transition to doxy and cefdinir as outpatient for total of 10 days Bacid to decrease risk of C. difficile 13. Reactive leukocytosis -Per the patient his previous hospital admission required 8 weeks of hospital stay due to persistent leukocytosis with full work-up Which was negative. Deep venous thrombosis (DVT) prophylaxis. On chronic Eliquis. Disposition: dc in am if wbc decreased. DISCHARGE PHYSICAL EXAM: VITAL SIGNS: See below GENERAL: in bed at 45 degree elevation HEENT: No jugular venous distention (JVD), thyromegaly or cervical lymphadenopathy. No tracheal deviation or use of respiratory accessory muscles. Anicteric. No jaundice. LUNGS: Diminished no wheezing, rales or rhonchi bilaterally. HEART: S1, S2. Sinus rhythm. ABDOMEN: Soft, nontender, nondistended. Positive bowel sounds. EXTREMITIES: No cyanosis or clubbing. Chronic edema. DISCHARGE LABORATORY DATA: Microbiology imaging studies please see the chart TIME SPENT ON DISCHARGE: 30 MINUTES Vital Signs/I&Os Vital Signs Date Time Temp Pulse Resp B/P (MAP) Pulse Ox O2 Delivery O2 Flow Rate FiO2 01/18/21 08:00 81 149/74 01/18/21 06:00 96.2 18 90 Room Air 01/17/21 22:00 1.0 I&O- Last 24 Hours up to 6 AM 01/18/21 06:00 Intake Total 2320 ml Output Total 2000 ml Balance 320 ml Laboratory Data Labs 24H Laboratory Tests 2 01/17/21 11:12: Bedside Glucose (Misc Panel) 181H 01/17/21 12:25: Bedside Glucose (Misc Panel) 160H 01/17/21 17:55: Bedside Glucose (Misc Panel) 183H 01/17/21 21:44: Bedside Glucose (Misc Panel) 182H 01/18/21 06:44: Bedside Glucose (Misc Panel) 232H 01/18/21 08:48: Immature Granulocyte % (Auto) , Neutrophils (%) (Auto) , Nucleated Red Blood Cells % (auto) 0.0, Neutrophils 78H, Band Neutrophils 2, Lymphocytes (Manual) 10L, Monocytes (Manual) 5, Eosinophils (Manual) , Metamyelocytes 2H, Myelocytes 1H, Atypical Lymphocytes 2, Polychromasia 1+, Microcytosis 1+, Ovalocytes , Giant Platelets 1+, Platelet Estimate NORMAL, Erythrocyte Sedimentation Rate 79H, C-Reactive Protein, Quantitative 1.01H CBC/BMP Laboratory Tests 01/18/21 08:48 FSBS Laboratory Tests Test 01/17/21 11:12 01/17/21 12:25 01/17/21 17:55 01/17/21 21:44 Range/Units Bedside Glucose (Misc Panel) 181 160 183 182 80-115 MG/DL Test 01/18/21 06:44 Range/Units Bedside Glucose (Misc Panel) 232 80-115 MG/DL Microbiology Microbiology 01/16/21 Blood Culture - Preliminary, Resulted No Growth after 48 hours. All Specime... 01/16/21 Blood Culture - Preliminary, Resulted No Growth after 48 hours. All Specime... 01/13/21 Blood Culture - Final, Complete NO GROWTH AFTER 5 DAYS 01/13/21 Blood Culture - Final, Complete Staphylococcus Warneri 01/12/21 Salmonella/Shigella Screen - Final, Resulted 01/12/21 Stool Culture Result 1 (OPAL), Resulted Pending 01/12/21 Campylobacter Culture - Final, Resulted 01/12/21 Miscellaneous Micro Reference Test, Resulted Pending 01/12/21 Escherichia coli Shiga Toxins EIA - Final, Resulted 01/12/21 Gastrointestinal Tract Panel (PCR) - Final, Complete Shigella/Enteroinvasive E.coli Discharge Medications Scheduled Apixaban (Eliquis) 5 Mg Tablet, 5 MG PO BID, (Reported) Atorvastatin Calcium (Atorvastatin Calcium) 40 Mg Tablet, 40 MG PO QHS, (Reported) Bacillus Coagulans (Bacid with Lactospore) 1 Each Capsule, 1 CAP PO WMHS Bupropion HCl (Bupropion HCl) 75 Mg Tab, 75 MG PO BID, (Reported) Cefdinir (Cefdinir) 300 Mg Capsule, 300 MG PO BID Covid-19 Vacc, Mrna(Pfizer)/Pf ([facility] Covid19 Vacc (Unapprov)) 30 Mcg/0.3 Ml Vial, 30 MCG IM ASDIRECTED, (Reported) Dexamethasone (Dexamethasone) 4 Mg Tablet, 8 MG PO BID take 2 tabs by mouth twice a day the day before chemo, the day of chemo, and the day after chemo Doxycycline Monohydrate (Doxycycline) 100 Mg Capsule, 100 MG PO BID Ferrous Sulfate (Ferrous Sulfate) 325 Mg Tab, 325 MG PO DAILY, (Reported) Insulin Glargine,Hum.rec.anlog (Lantus Solostar) 100 Unit/1 Ml Insuln.pen, 36 UNIT SC QPM, (Reported) Magnesium Oxide (Magnesium Oxide) 400 Mg Tablet, 400 MG PO BID, (Reported) Metformin HCl (Metformin HCl) 1,000 Mg Tab, 1,000 MG PO BID, (Reported) Metoprolol Tartrate (Metoprolol Tartrate) 50 Mg Tablet, 50 MG PO BID, (Reported) Multivitamins (Thera M Plus Tablet) 1 Tab Tab, 1 TAB PO DAILY, (Reported) Ondansetron HCl (Ondansetron HCl) 8 Mg Tablet, 8 MG PO TID for nausea/vomiting Tamsulosin HCl (Flomax) 0.4 Mg Capsule, 0.4 MG PO DAILY Venlafaxine HCl (Effexor Xr) 150 Mg Cap, 150 MG PO DAILY, (Reported) Scheduled PRN Furosemide (Lasix) 40 Mg Tab, 40 MG PO DAILY PRN for SWELLING, (Reported) Oxycodone HCl/Acetaminophen (Oxycodone-Acetaminophen 5-325) 1 Each Tablet, 1 TAB PO Q6H PRN for pain Allergies Coded Allergies: TAPE (Verified Allergy, Intermediate, BLISTERS, 01/24/19) niacin (Verified Adverse Reaction, Unknown, Red Face, 01/24/19) LOLI ROTH MD Jan 18, 2021 10:35
[2021-01-18] MEDS ORDERED: MOXIFLOXACIN 400 MG TAB PO ONE (13:00)
== END 2021-01-18 16:22 | disposition home or self-care (01) | DRG 371 ==
LOC: EDBD 12:34 → M ED 12:34 → M ED INP 14:41 → ENRESERV 14:58 → M MSPAV 15:31
PROVIDERS: ADMIT Internal Medicine; ATTEND General Practice
DX: A03.9 Shigellosis, unspecified (principal); J18.9 Pneumonia, unspecified organism; Z68.41 Body mass index [BMI] 40.0-44.9, adult; R53.1 Weakness; A04.2 Enteroinvasive Escherichia coli infection; R62.7 Adult failure to thrive; R11.0 Nausea; R29.810 Facial weakness; I48.0 Paroxysmal atrial fibrillation; E11.9 Type 2 diabetes mellitus without complications; E78.5 Hyperlipidemia, unspecified; Z66 Do not resuscitate; G89.29 Other chronic pain; F41.9 Anxiety disorder, unspecified; R33.9 Retention of urine, unspecified; C09.9 Malignant neoplasm of tonsil, unspecified; F32.9 Major depressive disorder, single episode, unspecified; T45.1X5A Adverse effect of antineoplastic and immunosuppressive drugs, initial encounter; E66.9 Obesity, unspecified; Z20.822 Contact with and (suspected) exposure to COVID-19; Z90.5 Acquired absence of kidney; Z79.01 Long term (current) use of anticoagulants; Z79.899 Other long term (current) drug therapy; Z88.8 Allergy status to other drugs, medicaments and biological substances; Z91.048 Other nonmedicinal substance allergy status; Z79.4 Long term (current) use of insulin; Z85.528 Personal history of other malignant neoplasm of kidney

== ENCOUNTER → 2021-05-30 | Outpatient (CLI) | payer MEDICARE ==
[~2021-05-30] MED LIST changes: +BACI1CAP PO; +BUPR150T5 PO; +CEFD300C PO; +DOXY-350 PO; +FLOM0.4C39 PO; +OMEP40CA4 PO; +ONDA-84 PO; -ONDA8TAB10 PO; +OXYC-600 PO; -OXYC1TAB PO; +PRED5TA PO; -PROC10TA4 PO; +PROC10TA5 PO
== END ==
LOC: M ONCR 12:45
PROVIDERS: ATTEND General Practice
DX: C77.0 Secondary and unspecified malignant neoplasm of lymph nodes of head, face and neck (principal); C11.1 Malignant neoplasm of posterior wall of nasopharynx; Z88.1 Allergy status to other antibiotic agents; Z87.891 Personal history of nicotine dependence; Z79.899 Other long term (current) drug therapy

== ENCOUNTER → 2021-06-30 | Outpatient (RCR) | payer MEDICARE | LOC: M ONCR 06-11 07:19 | PROVIDERS: ATTEND General Practice | DX: C77.0 Secondary and unspecified malignant neoplasm of lymph nodes of head, face and neck (principal) ==

== ENCOUNTER 2021-07-04 15:06 | Outpatient (RCR) | payer MEDICARE | END 2021-07-31 | LOC: M ONCR 15:06 | PROVIDERS: ATTEND General Practice | DX: C77.0 Secondary and unspecified malignant neoplasm of lymph nodes of head, face and neck (principal) ==

== ENCOUNTER → 2021-10-28 | Outpatient (CLI) | payer MEDICARE ==
[~2021-10-28] MED LIST changes: +BUPR-71 PO; -BUPR150T5 PO; +LOPE-39 PO
== END ==
LOC: M ONCR 10:44
PROVIDERS: ATTEND General Practice
DX: R59.9 Enlarged lymph nodes, unspecified (principal); Z85.818 Personal history of malignant neoplasm of other sites of lip, oral cavity, and pharynx; R13.10 Dysphagia, unspecified; Z79.01 Long term (current) use of anticoagulants; Z79.4 Long term (current) use of insulin; Z79.52 Long term (current) use of systemic steroids; Z79.891 Long term (current) use of opiate analgesic; Z79.899 Other long term (current) drug therapy; Z87.891 Personal history of nicotine dependence; Z91.048 Other nonmedicinal substance allergy status; Z92.21 Personal history of antineoplastic chemotherapy; Z92.3 Personal history of irradiation

== ENCOUNTER → 2021-10-31 | Outpatient (CLI) | payer MEDICARE ==
[~2021-10-31] MED LIST changes: +ISOVUE-370 76% 100ML VIAL ONE
== END ==
LOC: M PLAIMG 10:00
PROVIDERS: ATTEND Internal Medicine Medical Oncology
DX: R91.8 Other nonspecific abnormal finding of lung field (principal); C09.9 Malignant neoplasm of tonsil, unspecified
CPT/HCPCS: 70491; 71260; Q9967

== ENCOUNTER 2021-11-28 14:10 | Outpatient (RCR) | payer MEDICARE ==
[~2021-11-28 14:10] MED LIST changes: +AZIT-12 PO; -ISOVUE-370 76% 100ML VIAL ONE; +LIDO2SOL17 PO; +PRED50TA PO; +SYMB16INH INH
[2021-12-01] MEDS ORDERED: LORA1TAB4 PO (14:47)
== END 2021-11-30 ==
LOC: M ONCR 14:10
PROVIDERS: ATTEND General Practice
DX: C77.0 Secondary and unspecified malignant neoplasm of lymph nodes of head, face and neck (principal); C11.1 Malignant neoplasm of posterior wall of nasopharynx

== ENCOUNTER 2021-12-04 13:49 | Outpatient (RCR) | payer MEDICARE ==
[~2021-12-04 13:49] MED LIST changes: +LORA1TAB4 PO
== END 2021-12-31 ==
LOC: M ONCR 13:49
PROVIDERS: ATTEND General Practice
DX: C77.0 Secondary and unspecified malignant neoplasm of lymph nodes of head, face and neck (principal); C11.1 Malignant neoplasm of posterior wall of nasopharynx

== ENCOUNTER → 2021-12-10 | Outpatient (CLI) | payer MEDICARE | LOC: M WUC 10:42 | PROVIDERS: ATTEND Physician Assistant Medical | DX: R06.02 Shortness of breath (principal) ==